=== PATIENT | male | born 1955 | race Caucasian/White ===

== ENCOUNTER 2017-11-08 14:00 | Observation (INO) ==
--- NOTE | 2017-11-08 14:18 | Emergency Department Note ---
Disposition Clinical Impression: Confusion, Acute electrocardiogram changes Disposition: Admitted As Inpatient Condition: Fair Referrals: Chivo Mcfarlane MD [Primary Care Provider] - Forms: ED Satisfaction Letter Time of Disposition: 16:00 Altered Mental Status HPI - General Chief Complaint: ED Altered Mental Status Stated Complaint: increased confusion Time Seen by Provider: 11/08/17 14:05 Source: patient, EMS Mode of arrival: EMS Limitations: no limitations Nursing Notes Reviewed: Yes Vital Signs Reviewed: Yes - History of Present Illness HPI Narrative: 62-year-old with a history of dementia who comes in with increasing confusion. Patient fell yesterday hit his face and had had a CT of the head and face yesterday negative for acute findings. Today he was found to be more confused according to the squad. However on arrival here he is able to tell us where he is at he does not know the date is able to relate what happened to him yesterday and that he was seen. Sent for evaluation for increasing confusion. 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: caregiver Pain Severity: none Context: other (Fall yesterday) Associated symptoms: Reports: denies other symptoms - Related Data Home Medications Medication Instructions Recorded Confirmed Aspirin [Adult Aspirin Regimen] 81 mg PO DAILY 11/08/17 11/08/17 Benztropine [Cogentin] 1 mg PO BID 11/08/17 11/08/17 Cholecalciferol (D-3) [Vitamin D] 5,000 unit PO DAILY 11/08/17 11/08/17 Docusate Sodium [Dok] 100 mg PO DAILY 11/08/17 11/08/17 Haloperidol [Haldol] 5 mg PO HS 11/08/17 11/08/17 Haloperidol [Haloperidol] 10 mg PO BID 11/08/17 11/08/17 HydrOXYzine 10 mg PO Q6H PRN 11/08/17 11/08/17 Loratadine [Claritin] 10 mg PO DAILY 11/08/17 11/08/17 Meloxicam [Meloxicam] 15 mg PO DAILY 11/08/17 11/08/17 Metoprolol [Lopressor] 25 mg PO BID 11/08/17 11/08/17 Multivitamin/Iron/Folic Acid 1 tab PO DAILY 11/08/17 11/08/17 [Certavite-Antioxidant Tablet] Ranitidine HCl [Acid Calender Runner] 150 mg PO BID 11/08/17 11/08/17 Simvastatin [Zocor] 40 mg PO HS 11/08/17 11/08/17 risperiDONE [Risperidone] 4 mg PO BID 11/08/17 11/08/17 traZODone [TraZODone] 50 mg PO HS PRN 11/08/17 11/08/17 Allergies Allergy/AdvReac Type Severity Reaction Status Date / Time Penicillins Allergy Severe unknown Verified 11/08/17 16:23 perphenazine Allergy See Verified 11/08/17 16:23 Comments Phenothiazines Allergy See Verified 11/08/17 16:23 Comments Thioxanthenes Allergy See Verified 11/08/17 16:23 Comments venom-honey bee Allergy See Verified 11/08/17 16:23 [bee venom (honey bee)] Comments Novaine Allergy Intermediate unknown Uncoded 11/08/17 16:23 Trillivon Allergy Intermediate unknown Uncoded 11/08/17 16:23 All systems ED: reviewed and negative except as stated. Constitutional: Denies: fever, chills, weakness, weight change Eyes: Denies: eye pain, eye discharge, vision change ENT ED: Denies: ear pain, throat pain, dental pain, hearing loss, epistaxis, congestion, dysphagia Cardiovascular: Denies: chest pain, palpitations, dyspnea on exertion, edema, syncope Respiratory: Denies: cough, dyspnea, wheezes, hemoptysis, stridor Gastrointestinal: Denies: abdominal pain, nausea, vomiting, diarrhea, constipation, hematemesis, melena, hematochezia Genitourinary: Denies: urgency, dysuria, frequency, hematuria Musculoskeletal: Denies: back pain, neck pain, arthralgia, myalgia Integumentary: Denies: rash, abrasion, lesions Neurological: Denies: headache, weakness, numbness, paresthesias, confusion, abnormal gait, vertigo Psychiatric: Denies: anxiety, depression, suicidal thoughts, homicidal thoughts , auditory hallucinations, visual hallucinations Endocrine: Denies: fatigue Hematological/Lymphatic: Denies: easy bleeding, easy bruising Allergic/Immunologic: Denies: facial swelling, urticaria Past Medical History - Past Medical History Medical history: Reports: dementia, diabetes Surgical history: Reports: non-contributory Psychiatric history: Reports: no psych history - Social History Smoking Status: Current every day smoker Smokeless Tobacco Status: No Alcohol use: Reports: none Drug use: Reports: none Physical Exam - General Limitations: no limitations General appearance: alert, in no apparent distress - Head Head exam: atraumatic, normocephalic, normal inspection - Eye Eye exam: Present: normal appearance, PERRL, EOMI - ENT ENT exam: normal exam, normal oropharynx, mucous membranes moist - Neck Neck exam: Present: normal inspection, full ROM, trachea midline - Chest Chest inspection: Present: normal inspection, symmetric chest wall rise - Respiratory Respiratory exam: Present: normal lung sounds bilaterally - Cardiovascular Cardiovascular exam: Present: regular rate, normal rhythm, normal heart sounds - Abdominal Exam Abdominal exam: Present: soft, Non-Tender. Absent: tenderness, distention, guarding, rebound, rigidity - Extremities Exam Extremities exam: Present: normal inspection, full ROM. Absent: tenderness, pedal edema - Expanded Lower Extremity Exam Neurovascular/Tendon exam: Absent: motor deficit, sensory deficit, tendon deficit Gait: observed and normal - Back Exam Back exam: Present: normal inspection, full ROM. Absent: tenderness - Neurological Exam Neurological exam: Present: alert, oriented X3 - Psychiatric Psychiatric exam: Present: normal affect, normal mood - Skin Skin exam: Present: warm, dry, intact, normal color Course - Reevaluation(s) Reevaluation #1: Patient with increased confusion. EKG was obtained that showed T-wave inversion which was new. Previous left bundle branch block had resolved. Cardiology consult obtained recommend heparin and admission. Time: 17:12 - Consultations Consultation #1: I discussed the case with , she reviewed the EKGs and recommended heparin. The patient has had multiple falls. CT today was negative for acute intracranial injury. The heparin would be just short term until further evaluation and be done. Time: 15:59 Consultation #2: Discussed with , admit. Time: 17:12 Vital Signs Temperature 98 F 11/08/17 14:03 Pulse Rate 78 11/08/17 14:03 Respiratory Rate 18 11/08/17 14:03 Blood Pressure 126/77 11/08/17 14:03 O2 Sat by Pulse Oximetry 98 11/08/17 14:03 Temperature 98 F 11/08/17 14:03 Pulse Rate 78 11/08/17 14:03 Respiratory Rate 18 11/08/17 14:03 Blood Pressure 126/77 11/08/17 14:03 O2 Sat by Pulse Oximetry 98 11/08/17 14:03 Oxygen Delivery Oxygen Delivery Room Air Altered Mental Status - Lab Data Result diagrams: 11/08/17 14:12 11/08/17 14:12 Lab Results 11/08/17 11/08/17 11/08/17 Range/Units 14:12 14:12 14:12 WBC 6.2 (4.3-11.1) K/mcL RBC 3.10 L (4.19-5.50) M/mcL Hgb 11.1 L (12.9-16.9) g/dL Hct 32.9 L (37.5-50.1) % MCV 106.1 H (83.0-100.0) fL MCH 35.8 H (28.0-33.3) pg MCHC 33.7 (31.6-35.5) g/dL RDW 14.3 (11.5-14.5) % Plt Count 197 (140-400) K/mcL MPV 8.8 L (9.4-12.4) fL Immature Gran % 0.2 (0-4) % Seg Neutrophils % 64.1 % Lymphocytes % 23.3 % Monocytes % 8.7 % Eosinophils % 3.2 % Basophils % 0.5 % Neutrophils # 4.0 (1.6-8.9) K/mcL Lymphocytes # 1.4 (0.6-4.6) K/mcL Monocytes # 0.5 (0.0-1.3) K/mcL Eosinophils # 0.2 (0.0-0.6) K/mcL Basophils # 0.0 (0.0-0.2) K/mcL PT 10.5 (9.4-12.1) Seconds INR 1.0 APTT 26.3 (26.0-36.0) Seconds Sodium 138 (136-145) mEq/L Potassium 3.6 (3.5-5.1) mEq/L Chloride 103 (98-107) mEq/L Carbon Dioxide 26 (23-29) mEq/L BUN 9 (8-23) mg/dL Creatinine 0.68 L (0.70-1.30) mg/dL Est GFR ( Amer) > 60 (> 60) Est GFR (Non-Af Amer) > 60 (> 60) BUN/Creatinine Ratio 13 (6-26) Glucose 105 (70-105) mg/dL Calculated Osmolality 285 (280-300) Calcium 9.5 (8.6-10.3) mg/dL Total Bilirubin 0.5 (0.3-1.0) mg/dL Direct Bilirubin 0.2 (0.0-0.2) mg/dL Indirect Bilirubin 0.3 (0.0-1.2) mg/dL AST 19 (13-39) Units/L ALT 14 (7-52) Units/L Alkaline Phosphatase 110 H (34-104) Units/L Ammonia (16-53) mcmol/L Troponin I < 0.03 (< 0.04) ng/mL Serum Total Protein 6.8 (6.4-8.9) g/dL Albumin 4.2 (3.5-5.7) g/dL Globulin 2.6 (2.4-3.5) g/dL Albumin/Globulin Ratio 1.6 (1.1-2.2) Urine Color (Yellow) Urine Clarity (Clear) Urine pH (5.0-8.0) pH Units Ur Specific [place] (1.010-1.025) Urine Protein (Neg-Trace) mg/dL Urine Glucose (UA) (Normal) mg/dL Urine Ketones (Negative) mg/dL Urine Blood (Negative) Urine Nitrite (Negative) Urine Bilirubin (Negative) Urine Urobilinogen (Normal) mg/dL Ur Leukocyte Esterase (Negative) Ur Culture Indicated? (NO) Urine Opiates Screen (Gglpzp=100) ng/mL Ur Barbiturates Screen (Ybsvtb=844) ng/mL Ur Phencyclidine Scrn (Cutoff=25) ng/mL Ur Amphetamines Screen (Sfosup=5431) ng/mL U Benzodiazepines Scrn (Xxaxjq=804) ng/mL Urine Cocaine Screen (Cutoff= 300) ng/mL U Marijuana (THC) Screen (Cutoff = 50) ng/mL Ethyl Alcohol < 10 (Less than 10) mg/dL 11/08/17 11/08/17 11/08/17 Range/Units 14:53 14:55 14:55 WBC (4.3-11.1) K/mcL RBC (4.19-5.50) M/mcL Hgb (12.9-16.9) g/dL Hct (37.5-50.1) % MCV (83.0-100.0) fL MCH (28.0-33.3) pg MCHC (31.6-35.5) g/dL RDW (11.5-14.5) % Plt Count (140-400) K/mcL MPV (9.4-12.4) fL Immature Gran % (0-4) % Seg Neutrophils % % Lymphocytes % % Monocytes % % Eosinophils % % Basophils % % Neutrophils # (1.6-8.9) K/mcL Lymphocytes # (0.6-4.6) K/mcL Monocytes # (0.0-1.3) K/mcL Eosinophils # (0.0-0.6) K/mcL Basophils # (0.0-0.2) K/mcL PT (9.4-12.1) Seconds INR APTT (26.0-36.0) Seconds Sodium (136-145) mEq/L Potassium (3.5-5.1) mEq/L Chloride (98-107) mEq/L Carbon Dioxide (23-29) mEq/L BUN (8-23) mg/dL Creatinine (0.70-1.30) mg/dL Est GFR ( Amer) (> 60) Est GFR (Non-Af Amer) (> 60) BUN/Creatinine Ratio (6-26) Glucose (70-105) mg/dL Calculated Osmolality (280-300) Calcium (8.6-10.3) mg/dL Total Bilirubin (0.3-1.0) mg/dL Direct Bilirubin (0.0-0.2) mg/dL Indirect Bilirubin (0.0-1.2) mg/dL AST (13-39) Units/L ALT (7-52) Units/L Alkaline Phosphatase (34-104) Units/L Ammonia 25 (16-53) mcmol/L Troponin I (< 0.04) ng/mL Serum Total Protein (6.4-8.9) g/dL Albumin (3.5-5.7) g/dL Globulin (2.4-3.5) g/dL Albumin/Globulin Ratio (1.1-2.2) Urine Color Yellow (Yellow) Urine Clarity Clear (Clear) Urine pH 7.0 (5.0-8.0) pH Units Ur Specific [place] 1.012 (1.010-1.025) Urine Protein Negative (Neg-Trace) mg/dL Urine Glucose (UA) Normal (Normal) mg/dL Urine Ketones Negative (Negative) mg/dL Urine Blood Negative (Negative) Urine Nitrite Negative (Negative) Urine Bilirubin Negative (Negative) Urine Urobilinogen Normal (Normal) mg/dL Ur Leukocyte Esterase Negative (Negative) Ur Culture Indicated? NO (NO) Urine Opiates Screen Negative (Felrya=872) ng/mL Ur Barbiturates Screen Negative (Kxcpvf=173) ng/mL Ur Phencyclidine Scrn Negative (Cutoff=25) ng/mL Ur Amphetamines Screen Negative (Lxfale=9117) ng/mL U Benzodiazepines Scrn Negative (Oiidcd=108) ng/mL Urine Cocaine Screen Negative (Cutoff= 300) ng/mL U Marijuana (THC) Screen Negative (Cutoff = 50) ng/mL Ethyl Alcohol (Less than 10) mg/dL - EKG Data EKG attestation: Yes I reviewed and interpreted this EKG. EKG shows normal: sinus rhythm Rate: normal Rhythm: NSR T wave inversions: v1, v2, v3, v4 Interpretation: other (New T-wave inversion in leads V1 and V2 V3 and V4. Also appears that the left bundle branch block that was present on the EKG 08/30/2017 has resolved.) TPA Checklist - LKW: 3-4.5 hrs Add. Warnings/Precautions Patient/family understanding: The patient/family members have been counseled and understood the risk, benefit , and alternatives of treatment.
[2017-11-08 15:06] LABS: Bilirubin,Urine Negative (Negative); Blood,Urine Negative (Negative); Clarity,Urine Clear (Clear); Color,Urine Yellow (Yellow); Glucose,Urine (UA) Normal (Normal); Ketones,Urine Negative (Negative); Leukocyte Esterase,Urine Negative (Negative); Nitrite,Urine Negative (Negative); Protein,Urine Negative (Neg-Trace); Specific Gravity,Urine 1.012 (1.010-1.025); Urobilinogen,Urine Normal (Normal)
[2017-11-08 15:13] LABS: Amphetamine Screen,Urine Negative ng/mL (Cutoff=1000); Barbiturate Screen,Urine Negative ng/mL (Cutoff=200); Benzodiazepines Screen,Urine Negative ng/mL (Cutoff=200); Cannabinoid Screen,Urine Negative ng/mL (Cutoff = 50); Cocaine Screen,Urine Negative ng/mL (Cutoff= 300); Opiate Screen,Urine Negative ng/mL (Cutoff=300); Phencyclidine Screen,Urine Negative ng/mL (Cutoff=25)
[2017-11-08 15:17] LABS: Basophils % 0.5 %; Eosinophils # 0.2 K/mcL (0.0-0.6); Eosinophils % 3.2 %; Hematocrit 32.9 % (37.5-50.1); Hemoglobin 11.1 g/dL (12.9-16.9); Immature Granulocytes % 0.2 % (0-4); Lymphocytes # 1.4 K/mcL (0.6-4.6); Lymphocytes % 23.3 %; Mean Corpuscular HGB Conc 33.7 g/dL (31.6-35.5); Mean Corpuscular Hemoglobin 35.8 pg (28.0-33.3); Mean Corpuscular Volume 106.1 fL (83.0-100.0); Mean Platelet Volume 8.8 fL (9.4-12.4); Monocytes # 0.5 K/mcL (0.0-1.3); Monocytes % 8.7 %; Platelet Count 197 K/mcL (140-400); Red Cell Distribution Width 14.3 % (11.5-14.5); Segmented Neutrophils % 64.1 %
[2017-11-08 15:24] LABS: Prothrombin Time 10.5 Seconds (9.4-12.1)
[2017-11-08 15:27] LABS: Activated Partial Thrombo Time 26.3 Seconds (26.0-36.0)
[2017-11-08 15:40] LABS: Troponin I < 0.03 ng/mL (< 0.04)
[2017-11-08 15:41] LABS: Alanine Aminotransferase 14 Units/L (7-52); Albumin 4.2 g/dL (3.5-5.7); Albumin/Globulin Ratio 1.6 (1.1-2.2); Alkaline Phosphatase 110 Units/L (34-104); Aspartate Amino Transferase 19 Units/L (13-39); BUN/Creatinine Ratio 13 (6-26); Bilirubin,Direct 0.2 mg/dL (0.0-0.2); Bilirubin,Indirect 0.3 mg/dL (0.0-1.2); Bilirubin,Total 0.5 mg/dL (0.3-1.0); Blood Urea Nitrogen 9 mg/dL (8-23); Calcium 9.5 mg/dL (8.6-10.3); Carbon Dioxide 26 mEq/L (23-29); Chloride 103 mEq/L (98-107); Ethanol < 10 mg/dL (Less than 10); Globulin 2.6 g/dL (2.4-3.5); Glucose 105 mg/dL (70-105); Osmolality,Calculated 285 (280-300); Potassium 3.6 mEq/L (3.5-5.1); Sodium 138 mEq/L (136-145); Total Protein 6.8 g/dL (6.4-8.9); eGFR For African Americans > 60 (> 60); eGFR For Non-African Americans > 60 (> 60)
[2017-11-08] MEDS ORDERED: *HR* Heparin 5,000 UNIT/ML VIAL IVP PRN ×2 (15:58)
[2017-11-08] MEDS ORDERED: *HR* Heparin 5,000 UNIT/ML VIAL IVP ONE (15:58)
[2017-11-08] MEDS ORDERED: Heparin 25,000 UNIT/500 ML D5W 25,000 UNIT/500 ML BAG IVC SCH (16:00)
[2017-11-08] MEDS ORDERED: Naloxone 0.4 MG/ML INJ IVP PRN (18:01)
--- NOTE | 2017-11-08 18:18 | Internal Med History&Physical ---
Date of Encounter: 11/08/17 Time of Encounter: 18:06 Internal Medicine - H&P: HPI Chief complaint: chest discomfort Admitted From: Emergency Dept Plans for Post Hospital Care: Home History of present illness: Mr. Wagner is a 62 year old male, who has background medical history of advanced dementia, coronary artery disease, hypertension Patient is a resident of a [facility]. Patient had a fall yesterday and noted that patient was little confused as compared to his baseline. The director of group counseling program was concern and that is the reason patient was sent to this emergency room via EMS. Patient denies chest pain, nausea, vomiting, abdominal pain, dizziness or diarrhea. Workup in the emergency room: Patient was evaluated in the emergency room. Basic labs were drawn. EKG was done. Noted that EKG had a dynamic changes. Emergency room physician discussed case with the cardiology. Cardiology recommended to start IV heparin. Reason for admission: Acute EKG abnormality leads to intravenous heparin administration. Patient needs close monitoring and observation. Past Med Surg Social Fam HX - Past Medical History Medical history: dementia, diabetes Psychiatric history: no psych history - Past Surgical History Surgical History: non-contributory - Social History Smoking Status: Current every day smoker Smokeless Tobacco Status: No Alcohol use: none Drug use: none Internal Medicine - H&P: Meds Aspirin [Adult Aspirin Regimen] 81 mg PO DAILY 11/08/17 [History] Benztropine [Cogentin] 1 mg PO BID 11/08/17 [History] Cholecalciferol (D-3) [Vitamin D] 5,000 unit PO DAILY 11/08/17 [History] Docusate Sodium [Dok] 100 mg PO DAILY 11/08/17 [History] Haloperidol [Haldol] 5 mg PO HS 11/08/17 [History] Haloperidol [Haloperidol] 10 mg PO BID 11/08/17 [History] HydrOXYzine 10 mg PO Q6H PRN 11/08/17 [History] Loratadine [Claritin] 10 mg PO DAILY 11/08/17 [History] Meloxicam [Meloxicam] 15 mg PO DAILY 11/08/17 [History] Metoprolol [Lopressor] 25 mg PO BID 11/08/17 [History] Multivitamin/Iron/Folic Acid [Certavite-Antioxidant Tablet] 1 tab PO DAILY 11/08 [History] Ranitidine HCl [Acid Deboning Team Leader] 150 mg PO BID 11/08/17 [History] Simvastatin [Zocor] 40 mg PO HS 11/08/17 [History] risperiDONE [Risperidone] 4 mg PO BID 11/08/17 [History] traZODone [TraZODone] 50 mg PO HS PRN 11/08/17 [History] 3 Allergy/AdvReac Type Severity Reaction Status Date / Time Penicillins Allergy Severe unknown Verified 11/08/17 16:23 perphenazine Allergy See Verified 11/08/17 16:23 Comments Phenothiazines Allergy See Verified 11/08/17 16:23 Comments Thioxanthenes Allergy See Verified 11/08/17 16:23 Comments venom-honey bee Allergy See Verified 11/08/17 16:23 [bee venom (honey bee)] Comments Novaine Allergy Intermediate unknown Uncoded 11/08/17 16:23 Trillivon Allergy Intermediate unknown Uncoded 11/08/17 16:23 All Systems PM: A 10-system review of systems was performed and is negative for pertinent findings except as documented above in the HPI. - Constitutional Constitutional: no chills, no fever(s), no night sweats - EENT Eyes: no change in vision, no discharge, no pain, no photophobia Ears: no ear discharge, no ear pain, no tinnitus Nose, mouth and throat: no dysphagia, no nasal discharge, no neck pain, no sore throat - Cardiovascular Cardiovascular ROS IM: chest pain, no diaphoresis, no dyspnea, no lightheadedness, no palpitations, no syncope - Respiratory Respiratory: no cough, no dyspnea, no wheezing, no excessive phlegm production - Gastrointestinal Gastrointestinal: no abdominal pain, no diarrhea, no hematemesis, no hematochezia, no melena, no nausea, no vomiting - Musculoskeletal Musculoskeletal ROS IM: no numbness, no tingling - Integumentary Integumentary IM: no rash, no unusual bruising - Neurological Neurological ROS: no confusion, no convulsions, no focal weakness, no numbness, no tingling, no tremor(s) - Hematologic/Lymphatic Hematologic/Lymphatic: no easy bruising - Constitutional Vitals: Temp Pulse Resp BP Pulse Ox 98 F 74 18 128/78 99 11/08/17 14:03 11/08/17 18:00 11/08/17 18:00 11/08/17 18:00 11/08/17 18:00 General appearance: Present: A&O X 2, pleasant, no acute distress, answers questions appropriately - Head Head exam: Present: atraumatic, normocephalic - Eye Eye exam: Present: PERRL, conjuntiva pink, sclera anicteric Pupils: Present: PERRL - Neck Neck exam general surgery: Present: supple, trachea midline. Absent: lymphadenopathy - Respiratory Respiratory exam: Present: CTAB. Absent: accessory muscle use, rales, rhonchi, wheezes - Cardiovascular Cardiovascular exam: Present: RRR, +S1, +S2. Absent: diastolic murmur, gallop, rubs, systolic murmur - GI/Abdominal GI/Abdominal exam: Present: normal bowel sounds, soft, no peritoneal signs. Absent: distended, tenderness - Extremities Exam Extremities exam: Present: warm, radial pulses palpable and symmetrical. Absent : calf tenderness, cyanotic, pedal edema - Neurological Exam Neurological exam: Present: CN II-XII intact, oriented X3, no focal deficits. Absent: pronater drift, facial droop, speech deficit - Skin Skin exam: Present: dry, intact Internal Med - H&P Results - Labs CBC & Chem 7: 11/08/17 14:12 11/08/17 14:12 - Assessment and plan (1) Acute electrocardiogram changes Current Visit: Yes Status: Acute Assessment and plan: 62/male History of dementia. Admitted with mild confusion. Had a fall at [facility]. [facility] head: Negative for any acute changes. EKG in the emergency room: Dynamic changes and as compared to old EKG he has a acute T-wave inversion in anterior leads. ER physician call cardiology. Cardiology recommended observation/rule out ND protocol. Plan: Cardiac consultation Admit as an observation. Cardiac diet. Cycle troponin. Heparin drip. ASA/statin/beta sagar I examined this patient in the emergency room #24. Plan of care extended the patient. All questions answered. (2) Confusion Current Visit: Yes Status: Acute Assessment and plan: Patient is mildly confused. He answers all the questions. maybe this is a part of his underlying dementia (3) Fall Current Visit: No Status: Acute Assessment and plan: Patient had a multiple falls in the past. Patient had a fall yesterday. CT head: Negative for any acute intracranial bleed. Patient is presently on IV heparin. Fall precautions: order placed. Upon discharge there has to have some kind of decision regarding anticoagulation as this patient has a extremely high fall risk. Qualifiers: Encounter type: initial encounter Qualified Code(s): W19.XXXA - Unspecified fall, initial encounter (4) Syncope Current Visit: No Status: Acute Assessment and plan: Patient had a syncopal episode. It was a witnessed episode in the [facility]. We will observe him very closely. Fall precautions. Qualifiers: Syncope type: unspecified Qualified Code(s): R55 - Syncope and collapse (5) DVT prophylaxis Current Visit: Yes Status: Acute Assessment and plan: Heparin drip Medical decision making: This patient has a moderate to severe risk of worsening in spite of being on appropriate medication due to the underlying complex comorbid conditions. - Time Spent With Patient Total time spent is greater than 50% in coordination of care (as documented) at patient's floor/unit and/or counseling patient:
[2017-11-08] MEDS: Famotidine 20 MG TABLET PO SCH (20:39)
[2017-11-08] MEDS: risperiDONE 1 MG TABLET PO SCH (20:39)
[2017-11-08] MEDS ORDERED: Ondansetron 4 MG/2 ML VIAL IVP PRN (20:57)
[2017-11-08] MEDS ORDERED: Ondansetron 4 MG/2 ML VIAL ONE (20:59)
[2017-11-09 01:27] LABS: Basophils % 0.6 %; Eosinophils # 0.3 K/mcL (0.0-0.6); Eosinophils % 4.8 %; Hematocrit 30.6 % (37.5-50.1); Hemoglobin 10.4 g/dL (12.9-16.9); Immature Granulocytes % 0.3 % (0-4); Lymphocytes % 28.9 %; Mean Corpuscular Hemoglobin 36.1 pg (28.0-33.3); Mean Corpuscular Volume 106.3 fL (83.0-100.0); Mean Platelet Volume 9.5 fL (9.4-12.4); Monocytes # 0.7 K/mcL (0.0-1.3); Monocytes % 9.5 %; Neutrophils # 3.8 K/mcL (1.6-8.9); Platelet Count 191 K/mcL (140-400); Red Blood Count 2.88 M/mcL (4.19-5.50); Red Cell Distribution Width 14.2 % (11.5-14.5); Segmented Neutrophils % 55.9 %
[2017-11-09 01:40] LABS: Activated Partial Thrombo Time 64.7 Seconds (26.0-36.0)
[2017-11-09 01:54] LABS: Alanine Aminotransferase 11 Units/L (7-52); Albumin 3.8 g/dL (3.5-5.7); Albumin/Globulin Ratio 1.8 (1.1-2.2); Alkaline Phosphatase 97 Units/L (34-104); Aspartate Amino Transferase 18 Units/L (13-39); BUN/Creatinine Ratio 14 (6-26); Bilirubin,Total 0.4 mg/dL (0.3-1.0); Blood Urea Nitrogen 10 mg/dL (8-23); Calcium 9.2 mg/dL (8.6-10.3); Carbon Dioxide 27 mEq/L (23-29); Chloride 105 mEq/L (98-107); Chol/HDL Ratio 2.7 (0-4.9); Cholesterol 150 mg/dL (< 200); Globulin 2.1 g/dL (2.4-3.5); Glucose 120 mg/dL (70-105); HDL Cholesterol 56 mg/dL (40-59); LDL Cholesterol,Calculated 82 mg/dL (0-99); Magnesium 2.1 mg/dL (1.6-2.6); Osmolality,Calculated 284 (280-300); Phosphorous 3.9 mg/dL (2.7-4.5); Potassium 4.1 mEq/L (3.5-5.1); Sodium 137 mEq/L (136-145); Total Protein 5.9 g/dL (6.4-8.9); Triglycerides 62 mg/dL (< 150); eGFR For African Americans > 60 (> 60); eGFR For Non-African Americans > 60 (> 60)
[2017-11-09] MEDS: Loratadine 10 MG TABLET PO SCH (07:45)
[2017-11-09] MEDS: Famotidine 20 MG TABLET PO SCH ×2 (07:45→20:24)
[2017-11-09] MEDS: Aspirin Enteric Coated 81 MG Tablet PO SCH (07:45)
[2017-11-09] MEDS: Multivit/Ca/Min/Fe/FA 1 TAB TABLET PO SCH (07:45)
[2017-11-09] MEDS: risperiDONE 1 MG TABLET PO SCH ×2 (07:45→20:24)
[2017-11-09] MEDS: Cholecalciferol (D-3) 1,000 UNIT TABLET PO SCH (07:45)
--- NOTE | 2017-11-09 09:24 | Electrocardiograph Report ---
[place] [id number] Test Date: 2017-11-08 Pat Name: Russ Wagner Department: 104 Room: 3B21 Gender: M Clinical Reimbursement Specialist: AKIRA : [id number] Requested By: Milton Rodgers Order Number: [id number] Reading MD: Britt Suarez Measurements Intervals [place] Rate: 73 P: 58 DE: 184 QRS: -59 QRSD: 118 T: 14 QT: 424 QTc: 449 Interpretive Statements SINUS RHYTHM LEFT ANTERIOR FASCICULAR BLOCK [QRS AXIS <= -45, QR IN I, RS IN II] ST DEVIATION AND MARKED T-WAVE ABNORMALITY, CONSIDER ANTERIOR ISCHEMIA [-0.5+ mV T WAVE IN V3/V4] IVCD Electronically Signed On 11-09-2017 9:22:50 EDT by Britt Suarez
--- NOTE | 2017-11-09 10:58 | Cardiology Consult Note ---
<Corby Paige R - Last Filed: 11/09/17 11:17> Date of Encounter: 11/09/17 Time of Encounter: 10:53 Assessment and Plan (1) Acute electrocardiogram changes Current Visit: Yes Status: Acute EKG on presentation with ST depression in anterior leads--concerning for anterior ischemia and these changes are new compared to EKG 08/2017. EKG 08/2017 LBBB, not noted on current EKG, intermittent. Pt denies chest pain or dyspnea. Denies hx of CAD. No hx of CAD noted in eCW encounters. Alert and oriented x 2. Not oriented to time. On heparin gtt. Troponins negative x 4. Will stop heparin gtt. Risk factors for CAD include HTN, HLD, tobacco abuse. Given that he is asymptomatic, his dementia and schizophrenia, anticipate medical management. Check TTE to evaluate structure and function. ASA, Statin, BB. Lipid panel normal. Further recommendations pending TTE results. (2) Syncope Current Visit: Yes Status: Acute H&P reports syncopal event, pt unable to confirm this. Head CT negative. TTE to evaluate structure and function. Qualifiers: Syncope type: unspecified Qualified Code(s): R55 - Syncope and collapse Discussion w patient/family: The assessment and plan as outlined above was discussed with the patient and/or family members who expressed understanding and agreement. All questions were answered. Thank you for involving us in the care of your patient. Please call with any questions. I will discuss all the above with Dr. Suarez and make changes as necessary. History of Present Illness Consult date: 11/09/17 Requesting physician: Connor Bhagat Consult reason: EKG changes Chief complaint: fall History of present illness: Mr. Wagner is a 62 year old male with PMH HTN, HLD, paranoid schizophrenia, dementia, lives in a residential. He reportedly had a fall was was more confused compared to his baseline. There is also mention of syncope, but pt is unable to confirm this. He is alert and oriented to person and place, not time. EKG changes noted on presentation and cardiology consulted for further recommendations. Troponin negative x 4. He denies hx of CAD and none is noted in eCW hx. Denies chest pain or dyspnea. No prior cardiac testing available to view. Past Med Surg Social Fam HX - Past Medical History Medical history: dementia, diabetes, hypertension Psychiatric history: no psych history - Past Surgical History Surgical History: non-contributory - Social History Smoking Status: Current every day smoker Smokeless Tobacco Status: No Alcohol use: none Drug use: none - Family History Mother Living Status: Father Living Status: Medications and Allergies Aspirin [Adult Aspirin Regimen] 81 mg PO DAILY 11/08/17 [History] Benztropine [Cogentin] 1 mg PO BID 11/08/17 [History] Cholecalciferol (D-3) [Vitamin D] 5,000 unit PO DAILY 11/08/17 [History] Docusate Sodium [Dok] 100 mg PO DAILY 11/08/17 [History] Haloperidol [Haldol] 5 mg PO HS 11/08/17 [History] Haloperidol [Haloperidol] 10 mg PO BID 11/08/17 [History] HydrOXYzine 10 mg PO Q6H PRN 11/08/17 [History] Loratadine [Claritin] 10 mg PO DAILY 11/08/17 [History] Meloxicam [Meloxicam] 15 mg PO DAILY 11/08/17 [History] Metoprolol [Lopressor] 25 mg PO BID 11/08/17 [History] Multivitamin/Iron/Folic Acid [Certavite-Antioxidant Tablet] 1 tab PO DAILY 11/08 [History] Ranitidine HCl [Acid [employer]] 150 mg PO BID 11/08/17 [History] Simvastatin [Zocor] 40 mg PO HS 11/08/17 [History] risperiDONE [Risperidone] 4 mg PO BID 11/08/17 [History] traZODone [TraZODone] 50 mg PO HS PRN 11/08/17 [History] 3 Allergy/AdvReac Type Severity Reaction Status Date / Time Penicillins Allergy Severe unknown Verified 11/08/17 16:23 perphenazine Allergy See Verified 11/08/17 16:23 Comments Phenothiazines Allergy See Verified 11/08/17 16:23 Comments Thioxanthenes Allergy See Verified 11/08/17 16:23 Comments venom-honey bee Allergy See Verified 11/08/17 16:23 [bee venom (honey bee)] Comments Novaine Allergy Intermediate unknown Uncoded 11/08/17 16:23 Trillivon Allergy Intermediate unknown Uncoded 11/08/17 16:23 ROS unobtainable: due to mental status All Systems Review: The remainder of the systems were reviewed and are negative Physical Examination Vital Signs, Last 4 Hours Temp Pulse Resp BP Pulse Ox 11/09/17 07:29 97.4 F L 63 19 134/74 99 Vital Signs Temp Pulse Resp BP Pulse Ox 11/09/17 07:29 97.4 F L 63 19 134/74 99 11/09/17 02:40 98.7 F 64 16 111/70 97 11/08/17 23:15 98.4 F 66 16 113/66 96 11/08/17 20:11 98.3 F 87 16 131/77 94 11/08/17 18:00 74 18 128/78 99 11/08/17 14:03 98 F 78 18 126/77 98 Intake and Output 11/08/17 11/09/17 11/09/17 23:59 07:59 15:59 Intake Total 238 / 238 Balance 238 / 238 Intake: IV Fluids 238 / 238 Heparin 25,000 UNIT/500 ML D5W 238 / 238 25,000 unit In 500 ml @ 12 UNIT /KG/HR 17.418 mls/hr IVC .Q24H SENG Rx#:[id number] Other: # Voids 1 Weight 81.7 kg Blood Glucose* 109 General: Conversant, No Apparent Distress HEENT: Atraumatic, Normocephaly, Mucus Membranes Moist Neck: No JVD, Normal carotid pulses Cardiac: Reg Rate and Rhythm, Normal S1 and S2, No Murmur Lungs: Normal Breath Sounds, No Wheeze, Rales, Rhonchi Neuro: Alert and responsive, No focal deficits noted Abdomen: Soft, Non-Tender Skin: No rashes noted on visualized skin Musculoskeletal: No Chest Wall Tenderness Extremities: No Clubbing, No Cyanosis, No Edema, Normal Pulses Results 11/09/17 00:40 11/09/17 00:40 Lab Results 11/08/17 11/08/17 11/09/17 20:07 23:16 00:40 WBC Hgb Hct Plt Count INR APTT 69.7 H D Sodium Potassium Chloride Carbon Dioxide BUN Creatinine Glucose Calcium Magnesium Total Bilirubin AST ALT Alkaline Phosphatase Troponin I < 0.03 < 0.03 B-Natriuretic Peptide 11/09/17 11/09/17 11/09/17 00:40 00:40 00:40 WBC 6.8 Hgb 10.4 L Hct 30.6 L Plt Count 191 INR 1.0 APTT 64.7 H Sodium 137 Potassium 4.1 Chloride 105 Carbon Dioxide 27 BUN 10 Creatinine 0.72 Glucose 120 H Calcium 9.2 Magnesium 2.1 Total Bilirubin 0.4 AST 18 ALT 11 Alkaline Phosphatase 97 Troponin I B-Natriuretic Peptide 11/09/17 11/09/17 11/09/17 00:40 06:16 06:16 WBC Hgb Hct Plt Count INR APTT 74.8 H Sodium Potassium Chloride Carbon Dioxide BUN Creatinine Glucose Calcium Magnesium Total Bilirubin AST ALT Alkaline Phosphatase Troponin I < 0.03 B-Natriuretic Peptide 25 Short CBC 11/09/17 11/08/17 Range/Units 00:40 14:12 WBC 6.8 6.2 (4.3-11.1) K/mcL Hgb 10.4 L 11.1 L (12.9-16.9) g/dL Hct 30.6 L 32.9 L (37.5-50.1) % Plt Count 191 197 (140-400) K/mcL Neutrophils # 3.8 4.0 (1.6-8.9) K/mcL BMP 11/09/17 11/08/17 Range/Units 00:40 14:12 Sodium 137 138 (136-145) mEq/L Potassium 4.1 3.6 (3.5-5.1) mEq/L Chloride 105 103 (98-107) mEq/L Carbon Dioxide 27 26 (23-29) mEq/L BUN 10 9 (8-23) mg/dL Creatinine 0.72 0.68 L (0.70-1.30) mg/dL Glucose 120 H 105 (70-105) mg/dL Calcium 9.2 9.5 (8.6-10.3) mg/dL Cardiac Enzymes 11/09/17 11/09/17 11/08/17 Range/Units 06:16 00:40 20:07 Troponin I < 0.03 < 0.03 < 0.03 (< 0.04) ng/mL 11/08/17 Range/Units 14:12 Troponin I < 0.03 (< 0.04) ng/mL Liver Function 11/09/17 11/08/17 Range/Units 00:40 14:12 Total Bilirubin 0.4 0.5 (0.3-1.0) mg/dL Direct Bilirubin 0.2 (0.0-0.2) mg/dL AST 18 19 (13-39) Units/L ALT 11 14 (7-52) Units/L Alkaline Phosphatase 97 110 H (34-104) Units/L Albumin 3.8 4.2 (3.5-5.7) g/dL Urine 11/08/17 Range/Units 14:55 Urine Color Yellow (Yellow) Urine Clarity Clear (Clear) Urine pH 7.0 (5.0-8.0) pH Units Ur Specific Stuart 1.012 (1.010-1.025) Urine Protein Negative (Neg-Trace) mg/dL Urine Glucose (UA) Normal (Normal) mg/dL Impressions Chest X-Ray 11/08/17 14:12 IMPRESSION: Stable chest without acute cardiopulmonary process. D/ / Deuce Bedolla MD / Deuce Bedolla MD Interpreting Provider: Deuce Bedolla MD Head CT 11/08/17 14:14 IMPRESSION: No acute intracranial abnormality. D/ / Ghulam Nava MD / Ghulam Nava MD Interpreting Provider: Ghulam Nava MD Active Medications Aspirin (Aspirin Ec) 81 mg PO DAILY [facility] Stop: 05/11/18 09:01 Last Admin: 11/09/17 07:45 Dose: 81 mg Benztropine Mesylate (Cogentin) 1 mg PO BID [facility] Stop: 05/10/18 21:01 Last Admin: 11/09/17 07:45 Dose: 1 mg Docusate Sodium (Colace) 100 mg PO DAILY [facility] PRN Reason: Protocol Stop: 05/11/18 09:01 Last Admin: 11/09/17 07:45 Dose: 100 mg Famotidine (Pepcid) 20 mg PO BID [facility]ENG Stop: 05/10/18 21:01 Last Admin: 11/09/17 07:45 Dose: 20 mg Haloperidol (Haldol) 5 mg PO HS SENG Stop: 05/10/18 21:01 Last Admin: 11/08/17 20:39 Dose: 5 mg Haloperidol (Haldol) 10 mg PO BID [facility]ENG Stop: 05/10/18 21:01 Last Admin: 11/09/17 07:45 Dose: 10 mg Heparin Sodium (Porcine) (Heparin) 4,000 unit IVP Q6HR PRN PRN Reason: SEE COMMENTS Stop: 05/10/18 15:59 Heparin Sodium (Porcine) (Heparin) 2,000 unit IVP Q6H PRN PRN Reason: SEE COMMENTS Stop: 05/10/18 15:59 Hydroxyzine HCl (Hydroxyzine) 10 mg PO Q6H PRN PRN Reason: Anxiety Stop: 05/10/18 18:00 Heparin Sodium/Dextrose (Heparin 25,000 Unit/500 Ml D5w) 25,000 unit in 500 mls @ 17.418 mls/hr IVC .Q24H SENG; 12 UNIT/KG/HR PRN Reason: Protocol Stop: 05/10/18 16:01 Last Titration: 11/09/17 07:23 Dose: 12 unit/kg/hr, 17.418 mls/hr Loratadine (Claritin) 10 mg PO DAILY SENG PRN Reason: Protocol Stop: 05/11/18 09:01 Last Admin: 11/09/17 07:45 Dose: 10 mg Meloxicam (Mobic) 15 mg PO DAILY [facility]ENG Stop: 05/11/18 09:01 Last Admin: 11/09/17 07:45 Dose: 15 mg Metoprolol Tartrate (Lopressor) 25 mg PO BID [facility]ENG Stop: 05/10/18 21:01 Last Admin: 11/09/17 07:45 Dose: 25 mg Multivitamins/Calcium (Thera M Plus) 1 tab PO DAILY [facility]ENG Stop: 05/11/18 09:01 Last Admin: 11/09/17 07:45 Dose: 1 tab Naloxone HCl (Narcan) 0.4 mg IVP Q2MIN PRN PRN Reason: SEE COMMENTS Stop: 05/10/18 18:02 Ondansetron HCl (Zofran) 4 mg IVP Q6HR PRN; Protocol PRN Reason: Nausea Stop: 05/11/18 00:01 Last Admin: 11/08/17 21:09 Dose: 4 mg Risperidone (Risperdal) 4 mg PO BID [facility] Stop: 05/10/18 21:01 Last Admin: 11/09/17 07:45 Dose: 4 mg Simvastatin (Zocor) 40 mg PO HS SENG PRN Reason: Protocol Stop: 05/10/18 21:01 Last Admin: 11/08/17 20:39 Dose: 40 mg Trazodone HCl (Trazodone) 50 mg PO HS PRN PRN Reason: Sleep Stop: 05/10/18 18:00 Vitamin D (Vitamin D) 1,000 unit PO DAILY [facility]ENG Stop: 05/11/18 09:01 Last Admin: 11/09/17 07:45 Dose: 1,000 unit - EKG Interpretation EKG results cardiology: personally reviewed (SR, anterior ischemia), other (12 hr tele AVG HR 64, SR, no significant pauses or arrhythmias noted.) Consult Discharge Plan - Plan Referrals: Chivo Mcfarlane MD [Primary Care Provider] - <NickolassunBritt - Last Filed: 11/09/17 15:27> Date of Encounter: 11/09/17 - Attending Attestation I examined this patient and my medical decision-making was reviewed with the PHYSIATRIST. I agree with the documented findings, disposition and treatment plan as described. Mr. Solano presents with ECG abnormalities - marked TWI anterior precordial leads. Prior ECG from August demonstrates LBBB - may mask underlying TWI presently seen. ECG prior to that is from 2011. History taking is challenging - patient is alert but not entirely oriented. He has a history of schizophrenia and lives in a residential. He is able to tell me that he is not having chest pain. He denies a history of CAD. Troponins negative x 4. He has been hemodynamically stable. Overall, findings suggest against the presence of ACS. He would not be a good candidate for invasive procedures as well. Awaiting echo to help guide mangement. Recommend stopping heparin. Continue aspirin. Assessment and Plan Discussion w patient/family: The assessment and plan as outlined above was discussed with the patient and/or family members who expressed understanding and agreement. All questions were answered. Thank you for involving us in the care of your patient. Please call with any questions. History of Present Illness History of present illness: Mr. Wagner is a 62 year old male All Systems Review: The remainder of the systems were reviewed and are negative Results 11/09/17 00:40 11/09/17 00:40 Lab Results 11/08/17 11/08/17 11/09/17 20:07 23:16 00:40 WBC Hgb Hct Plt Count INR APTT 69.7 H D Sodium Potassium Chloride Carbon Dioxide BUN Creatinine Glucose Calcium Magnesium Total Bilirubin AST ALT Alkaline Phosphatase Troponin I < 0.03 < 0.03 B-Natriuretic Peptide 11/09/17 11/09/17 11/09/17 00:40 00:40 00:40 WBC 6.8 Hgb 10.4 L Hct 30.6 L Plt Count 191 INR 1.0 APTT 64.7 H Sodium 137 Potassium 4.1 Chloride 105 Carbon Dioxide 27 BUN 10 Creatinine 0.72 Glucose 120 H Calcium 9.2 Magnesium 2.1 Total Bilirubin 0.4 AST 18 ALT 11 Alkaline Phosphatase 97 Troponin I B-Natriuretic Peptide 11/09/17 11/09/17 11/09/17 00:40 06:16 06:16 WBC Hgb Hct Plt Count INR APTT 74.8 H Sodium Potassium Chloride Carbon Dioxide BUN Creatinine Glucose Calcium Magnesium Total Bilirubin AST ALT Alkaline Phosphatase Troponin I < 0.03 B-Natriuretic Peptide 25
--- NOTE | 2017-11-09 14:31 | Internal Med Progress Note ---
Date of Encounter: 11/09/17 Time of Encounter: 14:29 - Assessment and plan (1) Syncope Current Visit: Yes Status: Acute Assessment and plan: - Undetermined etiology. CT head no acute abnormalities. Serial troponin was negative. EKG showed T-wave inversion on V1 to V4. Combined with clinical manifestations, cardiogenic syncope is likely. - I will review overnight telemetry to see if there are any arrhythmia. Continue telemetry monitoring. Patient may need loop or event recorder upon discharge. - Pending echocardiogram. - Continue aspirin and metoprolol. - Cardiology following, appreciate help. Qualifiers: Syncope type: unspecified Qualified Code(s): R55 - Syncope and collapse (2) Fall Current Visit: Yes Status: Acute Assessment and plan: - Likely cardiac related syncopal event. - See above. Qualifiers: Encounter type: initial encounter Qualified Code(s): W19.XXXA - Unspecified fall, initial encounter (3) Acute electrocardiogram changes Current Visit: Yes Status: Acute Assessment and plan: - See above. - Time Spent With Patient Total time spent is greater than 50% in coordination of care (as documented) at patient's floor/unit and/or counseling patient: Greater than 35 minutes - Subjective Interval history: Patient seen and examined in the room. He is pleasant and cooperative. he reported he cannot recall the syncopal event. When he workup, he was on the floor of the dining room. He currently denies lightheadedness, palpitation, chest pain, shortness breath. - Constitutional Vitals: Temp Pulse Resp BP Pulse Ox 97.7 F 68 16 122/76 98 11/09/17 11:16 11/09/17 11:16 11/09/17 11:16 11/09/17 11:16 11/09/17 11:16 General appearance: Present: A&O X 2, pleasant, no acute distress, answers questions appropriately Exam: PHYSICAL EXAMINATION: GENERAL APPEARANCE: The patient is alert, oriented and in no acute distress. HEENT: Head is normocephalic. The sinuses are nontender. Pupils are equal and reactive. The nares are patent. Oropharynx clear without lesions. NECK: Supple without lymphadenopathy. HEART: Regular rate and rhythm. LUNGS: No crackles or wheezes are heard. ABDOMEN: Soft, nontender, nondistended with good bowel sounds heard. Inguinal area is normal. EXTREMITIES: Without cyanosis, clubbing or edema. NEUROLOGICAL: Gross nonfocal. SKIN: Warm and dry without any rash. Internal Medicine: Result - Labs CBC & Chem 7: 11/09/17 00:40 11/09/17 00:40 Labs: Short CBC 11/09/17 Range/Units 00:40 WBC 6.8 (4.3-11.1) K/mcL Hgb 10.4 L (12.9-16.9) g/dL Hct 30.6 L (37.5-50.1) % Plt Count 191 (140-400) K/mcL Neutrophils # 3.8 (1.6-8.9) K/mcL BMP 11/09/17 00:40 Sodium 137 Potassium 4.1 Chloride 105 Carbon Dioxide 27 BUN 10 Creatinine 0.72 Glucose 120 H Calcium 9.2 Cardiac Enzymes 11/08/17 11/09/17 11/09/17 Range/Units 20:07 00:40 06:16 Troponin I < 0.03 < 0.03 < 0.03 (< 0.04) ng/mL Liver Function 11/09/17 Range/Units 00:40 Total Bilirubin 0.4 (0.3-1.0) mg/dL AST 18 (13-39) Units/L ALT 11 (7-52) Units/L Alkaline Phosphatase 97 (34-104) Units/L Albumin 3.8 (3.5-5.7) g/dL - ABG Interpretation ABG results: PT/INR, D-dimer PT 11.0 Seconds (9.4-12.1) 11/09/17 00:40 Consult Discharge Plan - Plan Referrals: Chivo Mcfarlane MD [Primary Care Provider] -
[2017-11-09] MEDS: *HR* Heparin 5,000 UNIT/ML VIAL SQ SCH (17:22)
[2017-11-10 05:23] LABS: Hematocrit 31.3 % (37.5-50.1); Hemoglobin 10.3 g/dL (12.9-16.9); Mean Corpuscular HGB Conc 32.9 g/dL (31.6-35.5); Mean Corpuscular Hemoglobin 34.9 pg (28.0-33.3); Mean Corpuscular Volume 106.1 fL (83.0-100.0); Mean Platelet Volume 9.3 fL (9.4-12.4); Platelet Count 193 K/mcL (140-400); Red Blood Count 2.95 M/mcL (4.19-5.50); Red Cell Distribution Width 14.3 % (11.5-14.5); Segmented Neutrophils % 54.1 %
[2017-11-10 05:24] LABS: Basophils % 0.5 %; Eosinophils # 0.3 K/mcL (0.0-0.6); Immature Granulocytes % 0.3 % (0-4); Lymphocytes # 2.1 K/mcL (0.6-4.6); Lymphocytes % 31.9 %; Monocytes # 0.5 K/mcL (0.0-1.3); Monocytes % 8.2 %; Neutrophils # 3.6 K/mcL (1.6-8.9)
[2017-11-10] MEDS: *HR* Heparin 5,000 UNIT/ML VIAL SQ SCH ×2 (05:24→17:21)
[2017-11-10 05:44] LABS: BUN/Creatinine Ratio 17 (6-26); Blood Urea Nitrogen 13 mg/dL (8-23); Calcium 8.9 mg/dL (8.6-10.3); Carbon Dioxide 26 mEq/L (23-29); Chloride 106 mEq/L (98-107); Glucose 96 mg/dL (70-105); Osmolality,Calculated 286 (280-300); Potassium 3.9 mEq/L (3.5-5.1); Sodium 138 mEq/L (136-145); eGFR For African Americans > 60 (> 60); eGFR For Non-African Americans > 60 (> 60)
[2017-11-10] MEDS: risperiDONE 1 MG TABLET PO SCH ×2 (10:04→21:33)
[2017-11-10] MEDS: Multivit/Ca/Min/Fe/FA 1 TAB TABLET PO SCH (10:04)
[2017-11-10] MEDS: Aspirin Enteric Coated 81 MG Tablet PO SCH (10:04)
[2017-11-10] MEDS: Loratadine 10 MG TABLET PO SCH (10:04)
[2017-11-10] MEDS: Cholecalciferol (D-3) 1,000 UNIT TABLET PO SCH (10:04)
[2017-11-10] MEDS: Famotidine 20 MG TABLET PO SCH ×2 (10:04→21:31)
--- NOTE | 2017-11-10 14:56 | Internal Med Progress Note ---
Date of Encounter: 11/10/17 Time of Encounter: 14:56 - Assessment and plan (1) Syncope Current Visit: Yes Status: Acute Assessment and plan: - Undetermined etiology. CT head with no acute abnormalities. Serial troponin negative. EKG showed T-wave inversion on V1 to V4. Combined with clinical manifestations, cardiogenic syncope is likely. - Continue telemetry monitoring, SR - echocardiogram completed, report pending. - Continue aspirin, statin, and metoprolol. - Cardiology following, recommend medical management Qualifiers: Syncope type: unspecified Qualified Code(s): R55 - Syncope and collapse (2) Fall Current Visit: Yes Status: Acute Assessment and plan: - Likely cardiac related syncopal event, see above. Qualifiers: Encounter type: initial encounter Qualified Code(s): W19.XXXA - Unspecified fall, initial encounter (3) Acute electrocardiogram changes Current Visit: Yes Status: Acute Assessment and plan: - Medical management per cardiology recommendations. - Time Spent With Patient Total time spent is greater than 50% in coordination of care (as documented) at patient's floor/unit and/or counseling patient: - Subjective Interval history: Patient is sitting up in bed, oriented to person place and time but conversation all over the place, difficulty with concentration. Pleasant but flights of ideas - Constitutional Vitals: Temp Pulse Resp BP Pulse Ox 98.3 F 72 16 99/60 96 11/10/17 11:29 11/10/17 11:29 11/10/17 11:29 11/10/17 11:29 11/10/17 11:29 General appearance: Present: cooperative, A&O X 3, pleasant, no acute distress. Absent: answers questions appropriately - Head Head exam: Present: atraumatic, normocephalic - Eye Eye exam: Present: PERRL, conjuntiva pink, sclera anicteric Pupils: Present: PERRL - Neck Neck exam general surgery: Present: supple, trachea midline. Absent: lymphadenopathy - Respiratory Respiratory exam: Present: CTAB. Absent: accessory muscle use, rales, rhonchi, wheezes - Cardiovascular Cardiovascular exam: Present: RRR, +S1, +S2. Absent: diastolic murmur, gallop, rubs, systolic murmur - GI/Abdominal GI/Abdominal exam: Present: normal bowel sounds, soft, no peritoneal signs. Absent: distended, tenderness - Extremities Exam Extremities exam: Present: warm, radial pulses palpable and symmetrical. Absent : calf tenderness, cyanotic, pedal edema - Neurological Exam Neurological exam: Present: CN II-XII intact, oriented X3, no focal deficits. Absent: pronater drift, facial droop, speech deficit - Skin Skin exam: Present: dry, intact, normal color, warm Internal Medicine: Result - Labs CBC & Chem 7: 11/10/17 03:58 11/10/17 03:58 Labs: Short CBC 11/10/17 Range/Units 03:58 WBC 6.6 (4.3-11.1) K/mcL Hgb 10.3 L (12.9-16.9) g/dL Hct 31.3 L (37.5-50.1) % Plt Count 193 (140-400) K/mcL Neutrophils # 3.6 (1.6-8.9) K/mcL BMP 11/10/17 03:58 Sodium 138 Potassium 3.9 Chloride 106 Carbon Dioxide 26 BUN 13 Creatinine 0.76 Glucose 96 Calcium 8.9 - ABG Interpretation ABG results: PT/INR, D-dimer PT 11.0 Seconds (9.4-12.1) 11/09/17 00:40 Consult Discharge Plan - Plan Referrals: Chivo Mcfarlane MD [Primary Care Provider] -
[2017-11-10] MEDS: traZODone 50 MG TABLET PO PRN (21:32)
[2017-11-11 05:00] LABS: Basophils % 0.4 %; Eosinophils # 0.3 K/mcL (0.0-0.6); Eosinophils % 4.2 %; Hematocrit 32.4 % (37.5-50.1); Hemoglobin 10.7 g/dL (12.9-16.9); Immature Granulocytes % 0.3 % (0-4); Lymphocytes # 1.9 K/mcL (0.6-4.6); Lymphocytes % 27.9 %; Mean Corpuscular Hemoglobin 35.8 pg (28.0-33.3); Mean Corpuscular Volume 108.4 fL (83.0-100.0); Mean Platelet Volume 9.4 fL (9.4-12.4); Monocytes # 0.6 K/mcL (0.0-1.3); Monocytes % 8.7 %; Neutrophils # 4.1 K/mcL (1.6-8.9); Platelet Count 208 K/mcL (140-400); Red Blood Count 2.99 M/mcL (4.19-5.50); Red Cell Distribution Width 14.2 % (11.5-14.5); Segmented Neutrophils % 58.5 %
[2017-11-11 05:14] LABS: BUN/Creatinine Ratio 19 (6-26); Blood Urea Nitrogen 12 mg/dL (8-23); Calcium 8.9 mg/dL (8.6-10.3); Carbon Dioxide 26 mEq/L (23-29); Chloride 104 mEq/L (98-107); Glucose 113 mg/dL (70-105); Osmolality,Calculated 283 (280-300); Potassium 3.8 mEq/L (3.5-5.1); Sodium 136 mEq/L (136-145); eGFR For African Americans > 60 (> 60); eGFR For Non-African Americans > 60 (> 60)
[2017-11-11] MEDS: *HR* Heparin 5,000 UNIT/ML VIAL SQ SCH ×2 (05:22→17:44)
--- NOTE | 2017-11-11 07:54 | Event Note ---
Date of Encounter: 11/11/17 Time of Encounter: 07:53 - Cardiology Event Note Echo resulted--LVEF 60%. Normal LV chamber size, wall thickness and function. Mild left ventricular diastolic dysfunction. Normal right ventricular structure and function.Unable to estimate RVSP due to lack of TR jet.No significant valvular dysfunction. Cardiology signing off. Reconsult PRN.
[2017-11-11] MEDS: Loratadine 10 MG TABLET PO SCH (08:32)
[2017-11-11] MEDS: Multivit/Ca/Min/Fe/FA 1 TAB TABLET PO SCH (08:32)
[2017-11-11] MEDS: risperiDONE 1 MG TABLET PO SCH ×2 (08:32→20:54)
[2017-11-11] MEDS: Aspirin Enteric Coated 81 MG Tablet PO SCH (08:32)
[2017-11-11] MEDS: Famotidine 20 MG TABLET PO SCH ×2 (08:32→20:54)
[2017-11-11] MEDS: Cholecalciferol (D-3) 1,000 UNIT TABLET PO SCH (08:32)
--- NOTE | 2017-11-11 13:44 | Internal Med Progress Note ---
Date of Encounter: 11/11/17 Time of Encounter: 13:41 - Assessment and plan (1) Syncope Current Visit: Yes Status: Acute Assessment and plan: - Undetermined etiology. CT head with no acute abnormalities. Serial troponins negative. EKG showed T-wave inversion on V1 to V4. Combined with clinical manifestations, cardiogenic syncope is likely. - Continue telemetry monitoring, SR - echocardiogram completed, reviewed - LVEF 60%, normal LV chamber size, wall thickness and function. Mild left ventricular diastolic dysfunction with normal right ventricular structure and function. Unable to estimate are VSP due to lack of TR jet. No significant valvular dysfunction. - Continue aspirin, statin, and metoprolol. - Cardiology was following, recommend medical management, they have signed off. Qualifiers: Syncope type: unspecified Qualified Code(s): R55 - Syncope and collapse (2) Fall Current Visit: Yes Status: Acute Assessment and plan: - Likely cardiac related syncopal event, fall precautions. Qualifiers: Encounter type: initial encounter Qualified Code(s): W19.XXXA - Unspecified fall, initial encounter (3) Acute electrocardiogram changes Current Visit: Yes Status: Acute Assessment and plan: Medical management as per cardiology recommendations. - Time Spent With Patient Total time spent is greater than 50% in coordination of care (as documented) at patient's floor/unit and/or counseling patient: - Subjective Interval history: Patient is sitting up in bed, oriented to person and place, little withdrawn this am, not as antimated, playing with stuffed dog. - Constitutional Vitals: Temp Pulse Resp BP Pulse Ox 98.1 F 72 18 129/76 97 11/11/17 11:10 11/11/17 11:10 11/11/17 11:10 11/11/17 11:10 11/11/17 11:10 General appearance: Present: cooperative, A&O X 2, pleasant. Absent: answers questions appropriately - Head Head exam: Present: atraumatic, normocephalic - Eye Eye exam: Present: PERRL, conjuntiva pink, sclera anicteric Pupils: Present: PERRL - Neck Neck exam general surgery: Present: supple, trachea midline. Absent: lymphadenopathy - Respiratory Respiratory exam: Present: CTAB. Absent: accessory muscle use, rales, rhonchi, wheezes - Cardiovascular Cardiovascular exam: Present: RRR, +S1, +S2. Absent: diastolic murmur, gallop, rubs, systolic murmur - GI/Abdominal GI/Abdominal exam: Present: normal bowel sounds, soft, no peritoneal signs. Absent: distended, tenderness - Extremities Exam Extremities exam: Present: warm, radial pulses palpable and symmetrical. Absent : calf tenderness, cyanotic, pedal edema - Neurological Exam Neurological exam: Present: alert, CN II-XII intact, no focal deficits. Absent : pronater drift, facial droop, speech deficit - Skin Skin exam: Present: dry, normal color, warm Additional comments: fw scabbed areas patient picking at Internal Medicine: Result - Labs CBC & Chem 7: 11/11/17 03:26 11/11/17 03:26 Labs: Short CBC 11/11/17 Range/Units 03:26 WBC 6.9 (4.3-11.1) K/mcL Hgb 10.7 L (12.9-16.9) g/dL Hct 32.4 L (37.5-50.1) % Plt Count 208 (140-400) K/mcL Neutrophils # 4.1 (1.6-8.9) K/mcL BMP 11/11/17 03:26 Sodium 136 Potassium 3.8 Chloride 104 Carbon Dioxide 26 BUN 12 Creatinine 0.64 L Glucose 113 H Calcium 8.9 - ABG Interpretation ABG results: PT/INR, D-dimer PT 11.0 Seconds (9.4-12.1) 11/09/17 00:40 - Impressions Impressions Echocardiogram 11/10/17 11:53 Impressions: LVEF 60%. Normal LV chamber size, wall thickness and function. Mild left ventricular diastolic dysfunction. Normal right ventricular structure and function. Unable to estimate RVSP due to lack of TR jet. No significant valvular dysfunction. Left Ventricular Wall Motion: Rest Echo Findings All wall segments showed normal motion. Findings: Study Quality * Technically adequate exam. ECG Findings * Normal sinus rhythm. Left Ventricle * LVEF 60%. * Normal LV chamber size, wall thickness and function. * Mild left ventricular diastolic dysfunction. Right Ventricle * Normal right ventricular structure and function. Left Atrium * Mild to moderately dilated left atrium. Right Atrium * Normal right atrial size. Interatrial Septum * Interatrial septum not well evaluated. Aortic Valve * Trileaflet aortic valve with normal function. * No aortic regurgitation. * No aortic stenosis. Mitral Valve * Normal mitral valve structure and function. * No mitral regurgitation. * No mitral stenosis. Tricuspid Valve * Normal tricuspid valve structure and function. * No tricuspid regurgitation. * Unable to estimate RVSP due to lack of TR jet. Pulmonic Valve * Normal pulmonic valve structure and function. * No pulmonic regurgitation. Aorta * Normally sized aortic root. Pericardium * The pericardium appears normal. IVC * Normal IVC dimensions and inspiratory collapse. Pulmonary Artery * Normal visualized portions of the main pulmonary artery. Consult Discharge Plan - Plan Referrals: Chivo Mcfarlane MD [Primary Care Provider] -
[2017-11-11] MEDS: Nicotine 21 MG PATCH.TD24 TD SCH (15:07)
[2017-11-11] MEDS: traZODone 50 MG TABLET PO PRN (20:54)
[2017-11-12] MEDS: *HR* Heparin 5,000 UNIT/ML VIAL SQ SCH ×2 (05:42→17:15)
[2017-11-12] MEDS: Multivit/Ca/Min/Fe/FA 1 TAB TABLET PO SCH (08:33)
[2017-11-12] MEDS: risperiDONE 1 MG TABLET PO SCH ×2 (08:34→19:50)
[2017-11-12] MEDS: Aspirin Enteric Coated 81 MG Tablet PO SCH (08:34)
[2017-11-12] MEDS: Famotidine 20 MG TABLET PO SCH ×2 (08:34→19:50)
[2017-11-12] MEDS: Loratadine 10 MG TABLET PO SCH (08:34)
[2017-11-12] MEDS: Cholecalciferol (D-3) 1,000 UNIT TABLET PO SCH (08:34)
[2017-11-12] MEDS: Nicotine 21 MG PATCH.TD24 TD SCH (08:34)
--- NOTE | 2017-11-12 13:28 | Internal Med Progress Note ---
Date of Encounter: 11/12/17 Time of Encounter: 13:25 - Assessment and plan (1) Syncope Current Visit: Yes Status: Acute Assessment and plan: - Undetermined etiology. CT head with no acute abnormalities. Serial troponins negative. EKG showed T-wave inversion on V1 to V4. Cardiogenic syncope is likely. - Continue telemetry monitoring, SR - echocardiogram completed and reviewed - LVEF 60%, normal LV chamber size, wall thickness and function. Mild left ventricular diastolic dysfunction with normal right ventricular structure and function. No significant valvular dysfunction. - Continue aspirin, statin, and metoprolol. - Cardiology was following, recommend medical management, they have signed off. Qualifiers: Syncope type: unspecified Qualified Code(s): R55 - Syncope and collapse (2) Fall Current Visit: Yes Status: Acute Assessment and plan: Likely cardiac related syncopal event, continue fall precautions. Qualifiers: Encounter type: initial encounter Qualified Code(s): W19.XXXA - Unspecified fall, initial encounter (3) Acute electrocardiogram changes Current Visit: Yes Status: Acute Assessment and plan: Medical management per cardiology recommendations. (4) Diabetes mellitus Current Visit: Yes Status: Chronic Assessment and plan: Continue Accu-Cheks and coverage scale . Qualifiers: Diabetes mellitus type: type 2 Diabetes mellitus nursing home insulin use: without nursing home use Diabetes mellitus complication status: without complication Qualified Code(s): E11.9 - Type 2 diabetes mellitus without complications (5) Tobacco abuse Current Visit: Yes Status: Chronic Assessment and plan: cessation - Time Spent With Patient Total time spent is greater than 50% in coordination of care (as documented) at patient's floor/unit and/or counseling patient: - Subjective Interval history: Patient is sitting up in bed eating breakfast. He has no complaints today. He is much more alert and interactive today - Constitutional Vitals: Temp Pulse Resp BP Pulse Ox 97.5 F L 66 18 104/61 97 11/12/17 11:14 11/12/17 11:14 11/12/17 11:14 11/12/17 11:14 11/12/17 11:14 General appearance: Present: cooperative, A&O X 2, pleasant. Absent: answers questions appropriately - Head Head exam: Present: atraumatic, normocephalic - Eye Eye exam: Present: PERRL, conjuntiva pink, sclera anicteric Pupils: Present: PERRL - Neck Neck exam general surgery: Present: supple, trachea midline. Absent: lymphadenopathy - Respiratory Respiratory exam: Present: decreased breath sounds, CTAB. Absent: accessory muscle use, rales, rhonchi, wheezes - Cardiovascular Cardiovascular exam: Present: RRR, +S1, +S2. Absent: diastolic murmur, gallop, rubs, systolic murmur - GI/Abdominal GI/Abdominal exam: Present: normal bowel sounds, soft, no peritoneal signs. Absent: distended, tenderness - Extremities Exam Extremities exam: Present: warm, radial pulses palpable and symmetrical. Absent : calf tenderness, cyanotic, pedal edema - Neurological Exam Neurological exam: Present: alert, CN II-XII intact, no focal deficits. Absent : pronater drift, facial droop, speech deficit - Skin Skin exam: Present: dry, normal color, warm Internal Medicine: Result - Labs CBC & Chem 7: 11/11/17 03:26 11/11/17 03:26 - ABG Interpretation ABG results: PT/INR, D-dimer PT 11.0 Seconds (9.4-12.1) 11/09/17 00:40 Consult Discharge Plan - Plan Referrals: Chivo Mcfarlane MD [Primary Care Provider] -
[2017-11-13 04:29] LABS: Hematocrit 33.5 % (37.5-50.1); Hemoglobin 11.2 g/dL (12.9-16.9); Mean Corpuscular HGB Conc 33.4 g/dL (31.6-35.5); Mean Corpuscular Hemoglobin 35.8 pg (28.0-33.3); Mean Platelet Volume 9.1 fL (9.4-12.4); Platelet Count 183 K/mcL (140-400); Red Blood Count 3.13 M/mcL (4.19-5.50); Red Cell Distribution Width 14.1 % (11.5-14.5)
[2017-11-13 04:50] LABS: BUN/Creatinine Ratio 20 (6-26); Blood Urea Nitrogen 17 mg/dL (8-23); Calcium 9.4 mg/dL (8.6-10.3); Carbon Dioxide 27 mEq/L (23-29); Chloride 104 mEq/L (98-107); Glucose 106 mg/dL (70-105); Osmolality,Calculated 288 (280-300); Potassium 3.8 mEq/L (3.5-5.1); Sodium 138 mEq/L (136-145); eGFR For African Americans > 60 (> 60); eGFR For Non-African Americans > 60 (> 60)
[2017-11-13] MEDS: *HR* Heparin 5,000 UNIT/ML VIAL SQ SCH ×2 (06:01→17:28)
[2017-11-13] MEDS: Aspirin Enteric Coated 81 MG Tablet PO SCH (10:05)
[2017-11-13] MEDS: risperiDONE 1 MG TABLET PO SCH ×2 (10:05→20:29)
[2017-11-13] MEDS: Cholecalciferol (D-3) 1,000 UNIT TABLET PO SCH (10:05)
[2017-11-13] MEDS: Loratadine 10 MG TABLET PO SCH (10:05)
[2017-11-13] MEDS: Famotidine 20 MG TABLET PO SCH ×2 (10:05→20:28)
[2017-11-13] MEDS: Multivit/Ca/Min/Fe/FA 1 TAB TABLET PO SCH (10:06)
[2017-11-13] MEDS: Nicotine 21 MG PATCH.TD24 TD SCH (10:06)
--- NOTE | 2017-11-13 11:50 | Internal Med Progress Note ---
Date of Encounter: 11/13/17 Time of Encounter: 11:49 - Assessment and plan (1) Syncope Current Visit: Yes Status: Acute Assessment and plan: - Undetermined etiology. CT head with no acute abnormalities. Serial troponins negative. EKG showed T-wave inversion on V1 to V4. Cardiogenic syncope is likely. - No dysrhythmias on telemetry so was discontinued, he was in sinus rhythm - echocardiogram completed and reviewed - LVEF 60%, normal LV chamber size, wall thickness and function. Mild left ventricular diastolic dysfunction with normal right ventricular structure and function. No significant valvular dysfunction. - Continue aspirin, statin, and metoprolol. - Cardiology was following, recommend medical management, they have signed off. Qualifiers: Syncope type: unspecified Qualified Code(s): R55 - Syncope and collapse (2) Fall Current Visit: Yes Status: Acute Assessment and plan: Likely cardiac related syncopal event, continue fall precautions. Assist out of bed for meals Qualifiers: Encounter type: initial encounter Qualified Code(s): W19.XXXA - Unspecified fall, initial encounter (3) Acute electrocardiogram changes Current Visit: Yes Status: Acute Assessment and plan: Medical management per cardiology recommendations in the chart. (4) Diabetes mellitus Current Visit: Yes Status: Chronic Assessment and plan: Continue Accu-Cheks and coverage scale Accu-Cheks acceptable . Qualifiers: Diabetes mellitus type: type 2 Diabetes mellitus usp insulin use: without usp use Diabetes mellitus complication status: without complication Qualified Code(s): E11.9 - Type 2 diabetes mellitus without complications (5) Tobacco abuse Current Visit: Yes Status: Chronic Assessment and plan: cessation advised the patient not receptive though he is not asking for cigarettes here - Time Spent With Patient Total time spent is greater than 50% in coordination of care (as documented) at patient's floor/unit and/or counseling patient: - Subjective Interval history: Patient is lying in bedt. He has no complaints today. He is sleepy - Constitutional Vitals: Temp Pulse Resp BP Pulse Ox 97.8 F 69 17 100/64 95 11/13/17 11:40 11/13/17 11:40 11/13/17 11:40 11/13/17 11:40 11/13/17 11:40 General appearance: Present: cooperative, A&O X 2, pleasant. Absent: answers questions appropriately - Head Head exam: Present: atraumatic, normocephalic - Eye Eye exam: Present: PERRL, conjuntiva pink, sclera anicteric Pupils: Present: PERRL - Neck Neck exam general surgery: Present: supple, trachea midline. Absent: lymphadenopathy - Respiratory Respiratory exam: Present: decreased breath sounds, CTAB. Absent: accessory muscle use, rales, rhonchi, wheezes - Cardiovascular Cardiovascular exam: Present: RRR, +S1, +S2. Absent: diastolic murmur, gallop, rubs, systolic murmur - GI/Abdominal GI/Abdominal exam: Present: normal bowel sounds, soft, no peritoneal signs. Absent: distended, tenderness - Extremities Exam Extremities exam: Present: warm, radial pulses palpable and symmetrical. Absent : calf tenderness, cyanotic, pedal edema - Neurological Exam Neurological exam: Present: CN II-XII intact, no focal deficits. Absent: pronater drift, facial droop, speech deficit - Skin Skin exam: Present: dry, intact, normal color, warm Internal Medicine: Result - Labs CBC & Chem 7: 11/13/17 04:12 11/13/17 04:12 Labs: Short CBC 11/13/17 Range/Units 04:12 WBC 7.7 (4.3-11.1) K/mcL Hgb 11.2 L (12.9-16.9) g/dL Hct 33.5 L (37.5-50.1) % Plt Count 183 (140-400) K/mcL BMP 11/13/17 04:12 Sodium 138 Potassium 3.8 Chloride 104 Carbon Dioxide 27 BUN 17 Creatinine 0.85 Glucose 106 H Calcium 9.4 - ABG Interpretation ABG results: PT/INR, D-dimer PT 11.0 Seconds (9.4-12.1) 11/09/17 00:40 Consult Discharge Plan - Plan Referrals: Chivo Mcfarlane MD [Primary Care Provider] -
[2017-11-14] MEDS: *HR* Heparin 5,000 UNIT/ML VIAL SQ SCH ×2 (06:18→17:16)
[2017-11-14] MEDS: Multivit/Ca/Min/Fe/FA 1 TAB TABLET PO SCH (09:17)
[2017-11-14] MEDS: Cholecalciferol (D-3) 1,000 UNIT TABLET PO SCH (09:17)
[2017-11-14] MEDS: Famotidine 20 MG TABLET PO SCH ×2 (09:17→20:30)
[2017-11-14] MEDS: Nicotine 21 MG PATCH.TD24 TD SCH (09:17)
[2017-11-14] MEDS: Aspirin Enteric Coated 81 MG Tablet PO SCH (09:17)
[2017-11-14] MEDS: risperiDONE 1 MG TABLET PO SCH ×2 (09:18→20:30)
[2017-11-14] MEDS: Loratadine 10 MG TABLET PO SCH (09:18)
--- NOTE | 2017-11-14 10:36 | Internal Med Progress Note ---
Date of Encounter: 11/14/17 Time of Encounter: 10:34 - Assessment and plan (1) Syncope Current Visit: Yes Status: Acute Qualifiers: Syncope type: unspecified Qualified Code(s): R55 - Syncope and collapse (2) Fall Current Visit: Yes Status: Acute Qualifiers: Encounter type: initial encounter Qualified Code(s): W19.XXXA - Unspecified fall, initial encounter (3) Acute electrocardiogram changes Current Visit: Yes Status: Acute (4) Diabetes mellitus Current Visit: Yes Status: Chronic Qualifiers: Diabetes mellitus type: type 2 Diabetes mellitus fdc insulin use: without manager terminal use Diabetes mellitus complication status: without complication Qualified Code(s): E11.9 - Type 2 diabetes mellitus without complications (5) Tobacco abuse Current Visit: Yes Status: Chronic - Time Spent With Patient Total time spent is greater than 50% in coordination of care (as documented) at patient's floor/unit and/or counseling patient: - Subjective Interval history: Patient is very alert and cooperative today. He is interacting appropriately. He is holding his dog. He answered questions and follow commands. He has no voiced complaints. - Constitutional Vitals: Temp Pulse Resp BP Pulse Ox 98.7 F 63 16 123/68 99 11/14/17 07:39 11/14/17 07:39 11/14/17 07:39 11/14/17 07:39 11/14/17 07:39 General appearance: Present: cooperative, A&O X 2, pleasant, answers questions appropriately - Head Head exam: Present: atraumatic, normocephalic - Eye Eye exam: Present: PERRL, conjuntiva pink, sclera anicteric Pupils: Present: PERRL - Neck Neck exam general surgery: Present: supple, trachea midline. Absent: lymphadenopathy - Respiratory Respiratory exam: Present: CTAB. Absent: accessory muscle use, rales, rhonchi, wheezes - Cardiovascular Cardiovascular exam: Present: RRR, +S1, +S2. Absent: diastolic murmur, gallop, rubs, systolic murmur - GI/Abdominal GI/Abdominal exam: Present: normal bowel sounds, soft, no peritoneal signs. Absent: distended, tenderness - Extremities Exam Extremities exam: Present: warm, radial pulses palpable and symmetrical. Absent : calf tenderness, cyanotic, pedal edema - Neurological Exam Neurological exam: Present: alert, CN II-XII intact, no focal deficits. Absent : pronater drift, facial droop, speech deficit - Skin Skin exam: Present: dry, intact, normal color, warm Additional comments: Some bruising of her left lower extremity patient wears ROM boot when out of bed Internal Medicine: Result - Labs CBC & Chem 7: 11/13/17 04:12 11/13/17 04:12 - ABG Interpretation ABG results: PT/INR, D-dimer PT 11.0 Seconds (9.4-12.1) 11/09/17 00:40 Consult Discharge Plan - Plan Referrals: Chivo Mcfarlane MD [Primary Care Provider] -
[2017-11-15] MEDS: *HR* Heparin 5,000 UNIT/ML VIAL SQ SCH ×2 (06:28→17:35)
[2017-11-15] MEDS: Cholecalciferol (D-3) 1,000 UNIT TABLET PO SCH (08:11)
[2017-11-15] MEDS: Famotidine 20 MG TABLET PO SCH ×2 (08:11→21:15)
[2017-11-15] MEDS: Loratadine 10 MG TABLET PO SCH (08:11)
[2017-11-15] MEDS: Aspirin Enteric Coated 81 MG Tablet PO SCH (08:11)
[2017-11-15] MEDS: risperiDONE 1 MG TABLET PO SCH ×2 (08:11→21:15)
[2017-11-15] MEDS: Multivit/Ca/Min/Fe/FA 1 TAB TABLET PO SCH (08:11)
[2017-11-15] MEDS: Nicotine 21 MG PATCH.TD24 TD SCH (08:12)
--- NOTE | 2017-11-15 16:54 | Internal Med Progress Note ---
Date of Encounter: 11/15/17 Time of Encounter: 16:52 - Assessment and plan (1) Acute electrocardiogram changes Current Visit: Yes Status: Acute Assessment and plan: Medical management as per cardiology recommendations in the chart. (2) Diabetes mellitus Current Visit: Yes Status: Chronic Assessment and plan: Continue Accu-Cheks and coverage scale . 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 Diabetes mellitus complication status: without complication Qualified Code(s): E11.9 - Type 2 diabetes mellitus without complications (3) Tobacco abuse Current Visit: Yes Status: Chronic Assessment and plan: cessation advised, the patient not receptive though he is not asking for cigarettes here, question understanding (4) Urinary retention Current Visit: Yes Status: Acute Assessment and plan: Wallace catheter placed for urinary retention Flomax started and will be continued Discharged with Wallace catheter and follow up from [place] with urology - Time Spent With Patient Total time spent is greater than 50% in coordination of care (as documented) at patient's floor/unit and/or counseling patient: - Subjective Interval history: Patient is very alert and cooperative today. He is interacting appropriately. He is holding his stuffed dog. He answered questions and follow commands. He has no voiced complaints. Wallace catheter is intact for urinary retention. There is a bed at [facility] facility and we got a message at [facility] cessation was obtained but when [facility] was called back the nursing staff knew nothing about it so he will not be discharged this afternoon - Constitutional Vitals: Temp Pulse Resp BP Pulse Ox 98.3 F 66 15 134/77 97 11/15/17 15:34 11/15/17 15:34 11/15/17 15:34 11/15/17 15:34 11/15/17 15:34 General appearance: Present: cooperative, A&O X 2, pleasant. Absent: answers questions appropriately - Head Head exam: Present: atraumatic, normocephalic - Eye Eye exam: Present: PERRL, conjuntiva pink, sclera anicteric Pupils: Present: PERRL - Neck Neck exam general surgery: Present: supple, trachea midline. Absent: lymphadenopathy - Respiratory Respiratory exam: Present: CTAB. Absent: accessory muscle use, rales, rhonchi, wheezes - Cardiovascular Cardiovascular exam: Present: RRR, +S1, +S2. Absent: diastolic murmur, gallop, rubs, systolic murmur - GI/Abdominal GI/Abdominal exam: Present: normal bowel sounds, soft, no peritoneal signs. Absent: distended, tenderness - Extremities Exam Extremities exam: Present: warm, radial pulses palpable and symmetrical. Absent : calf tenderness, cyanotic, pedal edema - Neurological Exam Neurological exam: Present: CN II-XII intact, no focal deficits. Absent: pronater drift, facial droop, speech deficit - Skin Skin exam: Present: dry, intact, normal color, warm Internal Medicine: Result - Labs CBC & Chem 7: 11/13/17 04:12 11/13/17 04:12 - ABG Interpretation ABG results: PT/INR, D-dimer PT 11.0 Seconds (9.4-12.1) 11/09/17 00:40 Consult Discharge Plan - Plan Referrals: Chivo Mcfarlane MD [Primary Care Provider] -
[2017-11-16 04:58] LABS: Basophils % 0.5 %; Eosinophils # 0.3 K/mcL (0.0-0.6); Eosinophils % 3.8 %; Hematocrit 31.9 % (37.5-50.1); Immature Granulocytes % 0.3 % (0-4); Lymphocytes # 2.2 K/mcL (0.6-4.6); Lymphocytes % 29.3 %; Mean Corpuscular HGB Conc 34.5 g/dL (31.6-35.5); Mean Corpuscular Hemoglobin 36.5 pg (28.0-33.3); Mean Platelet Volume 9.3 fL (9.4-12.4); Monocytes # 0.7 K/mcL (0.0-1.3); Neutrophils # 4.3 K/mcL (1.6-8.9); Platelet Count 219 K/mcL (140-400); Red Blood Count 3.01 M/mcL (4.19-5.50); Red Cell Distribution Width 13.9 % (11.5-14.5); Segmented Neutrophils % 57.1 %
[2017-11-16 05:26] LABS: BUN/Creatinine Ratio 26 (6-26); Blood Urea Nitrogen 17 mg/dL (8-23); Calcium 9.4 mg/dL (8.6-10.3); Carbon Dioxide 25 mEq/L (23-29); Chloride 106 mEq/L (98-107); Glucose 100 mg/dL (70-105); Osmolality,Calculated 292 (280-300); Potassium 3.8 mEq/L (3.5-5.1); Sodium 140 mEq/L (136-145); eGFR For African Americans > 60 (> 60); eGFR For Non-African Americans > 60 (> 60)
[2017-11-16] MEDS: *HR* Heparin 5,000 UNIT/ML VIAL SQ SCH (06:17)
[2017-11-16] MEDS: Nicotine 21 MG PATCH.TD24 TD SCH (08:19)
[2017-11-16] MEDS: Multivit/Ca/Min/Fe/FA 1 TAB TABLET PO SCH (08:20)
[2017-11-16] MEDS: Loratadine 10 MG TABLET PO SCH (08:20)
[2017-11-16] MEDS: Famotidine 20 MG TABLET PO SCH (08:20)
[2017-11-16] MEDS: risperiDONE 1 MG TABLET PO SCH (08:20)
[2017-11-16] MEDS: Aspirin Enteric Coated 81 MG Tablet PO SCH (08:21)
[2017-11-16] MEDS: Cholecalciferol (D-3) 1,000 UNIT TABLET PO SCH (08:21)
[2017-11-16 11:51] VITALS: BP 119/66
--- NOTE | 2017-11-16 14:28 | Discharge Summary ---
- NOTES TO OUTPATIENT PROVIDER Notes to Outpatient Provider: Syncopal event seen by cardiology recommend medical managment , He will need follow up with urology concerning urinary retention Date of Encounter: 11/16/17 Time of Encounter: 14:25 - Discharge Diagnosis (1) Acute electrocardiogram changes Priority: Primary Status: Acute (2) Diabetes mellitus Priority: Secondary Status: Chronic Qualifiers: Diabetes mellitus type: type 2 Diabetes mellitus rat exterminator insulin use: without assisted use Diabetes mellitus complication status: without complication Qualified Code(s): E11.9 - Type 2 diabetes mellitus without complications (3) Tobacco abuse Priority: Secondary Status: Chronic (4) Urinary retention Priority: Secondary Status: Acute Assessment and Plan: Wallace catheter placed for urinary retention Flomax started and will be continued Discharged with Wallace catheter and follow up from [place] with urology Hospital course: Mr. Wagner is a 62 year old male past several history of advanced dementia coronary artery disease hypertension patient resides in a nursing home. He experienced a witnessed fall the patient was noted to be a little confused compared to his baseline patient was sent to the emergency room for evaluation EKG was completed which did reveal ST depression in anterior leads concerning for anterior ischemia compared to EKG 08/2017. Patient underwent an echo with LVEF 60% normal LV chamber size wall thickness and function mild left ventricular diastolic dysfunction normal right ventricular structure and function cardiology recommending medical management. During admission patient did experience urinary retention Flomax was initiated he is to follow-up with urology as an outpatient. Patient was also evaluated by PT OT recommending ECF placement. Patient is hemodynamically stable this time and is ready for discharge to ECF Discharge discussed with: patient - Time Spent with Patient Total time spent providing and/or coordinating discharge services: - Discharge Medications Home Medications: Aspirin [Adult Aspirin Regimen] 81 mg PO DAILY 11/08/17 [History] Benztropine [Cogentin] 1 mg PO BID 11/08/17 [History] Cholecalciferol (D-3) [Vitamin D] 5,000 unit PO DAILY 11/08/17 [History] Docusate Sodium [Dok] 100 mg PO DAILY 11/08/17 [History] Haloperidol 10 mg PO BID 11/08/17 [History] Haloperidol [Haldol] 5 mg PO HS 11/08/17 [History] HydrOXYzine 10 mg PO Q6H PRN 11/08/17 [History] Loratadine [Claritin] 10 mg PO DAILY 11/08/17 [History] Meloxicam 15 mg PO DAILY 11/08/17 [History] Metoprolol [Lopressor] 25 mg PO BID 11/08/17 [History] Multivitamin/Iron/Folic Acid [Certavite-Antioxidant Tablet] 1 tab PO DAILY 11/08 [History] Ranitidine HCl [Acid Slat Basket Maker] 150 mg PO BID 11/08/17 [History] Simvastatin [Zocor] 40 mg PO HS 11/08/17 [History] risperiDONE [Risperidone] 4 mg PO BID 11/08/17 [History] traZODone [TraZODone] 50 mg PO HS PRN 11/08/17 [History] Allergies/Adverse Reactions: 3 Allergy/AdvReac Type Severity Reaction Status Date / Time Penicillins Allergy Severe unknown Verified 11/08/17 16:23 perphenazine Allergy See Verified 11/08/17 16:23 Comments Phenothiazines Allergy See Verified 11/08/17 16:23 Comments Thioxanthenes Allergy See Verified 11/08/17 16:23 Comments venom-honey bee Allergy See Verified 11/08/17 16:23 [bee venom (honey bee)] Comments Novaine Allergy Intermediate unknown Uncoded 11/08/17 16:23 Trillivon Allergy Intermediate unknown Uncoded 11/08/17 16:23 Date of admission: 11/08/17 17:58 Primary care physician: Chivo Mcfarlane MD Consults: 11/08/17 18:47 Consult to Automation And Control Engineer [CONS] Routine Reason for SW Consult: from a nursing home. unaware of name and location. Phone number to contact is Radha at [phone]. I do not have a whole lot of information at this time due to orientation but patient is from a nursing home 11/09/17 13:15 Consult to Occupational Therapy [CONS] Routine Comment: Evaluate, develop and implement POC Reason for Consult: eval and treat Does patient have active BEDREST order?: No Is patient medically & hemodynamically stable?: Yes Patient assessed for mobility or mobilized this visit?: No Consult to Physical Therapy [CONS] Routine Comment: Evaluate, develop and implement POC Reason for Consult: eval and treat Does patient have active BEDREST order?: No Is patient medically & hemodynamically stable?: Yes Patient assessed for mobility or mobilized this visit?: No Discharging clinician: Ludmila Carter Anticipated date of discharge: 11/16/17 - Constitutional Vitals: Temp Pulse Resp BP Pulse Ox 97.5 F L 71 16 119/66 99 11/16/17 11:50 11/16/17 11:50 11/16/17 11:50 11/16/17 11:50 11/16/17 11:50 General appearance: Present: cooperative, A&O X 2, pleasant. Absent: answers questions appropriately - Head Head exam: Present: atraumatic, normocephalic - Eye Eye exam: Present: PERRL, conjuntiva pink, sclera anicteric Pupils: Present: PERRL - Neck Neck exam general surgery: Present: supple, trachea midline. Absent: lymphadenopathy - Respiratory Respiratory exam: Present: CTAB. Absent: accessory muscle use, rales, rhonchi, wheezes - Cardiovascular Cardiovascular exam: Present: RRR, +S1, +S2. Absent: diastolic murmur, gallop, rubs, systolic murmur - GI/Abdominal GI/Abdominal exam: Present: normal bowel sounds, soft, no peritoneal signs. Absent: distended, tenderness - Extremities Exam Extremities exam: Present: warm, radial pulses palpable and symmetrical. Absent : calf tenderness, cyanotic, pedal edema - Neurological Exam Neurological exam: Present: CN II-XII intact, oriented X3, no focal deficits. Absent: pronater drift, facial droop, speech deficit - Skin Skin exam: Present: dry, intact - Patient Status Disposition: Transfer SNF Condition: Fair Functional capacity at discharge: independent ambulation Overall status at discharge: patient is back to baseline - Discharge Instructions Follow Up With: Chivo Mcfarlane MD [Primary Care Provider] -
--- NOTE | 2017-11-16 14:35 | Physician Discharge Referral ---
ExtendedCare Referral Info Transfer To: [facility] Provider in Charge: Ludmila Carter Provider in Charge after Transfer: PCP Institutional Level of Care: Skilled - Diagnosis (1) Acute electrocardiogram changes Priority: Primary Status: Acute (2) Diabetes mellitus Priority: Secondary Status: Chronic (3) Tobacco abuse Priority: Secondary Status: Chronic (4) Urinary retention Priority: Secondary Status: Acute Prognosis: Fair Aware of Diagnosis: Patient - Transfer Medications Home Medications: Aspirin [Adult Aspirin Regimen] 81 mg PO DAILY 11/08/17 [History] Benztropine [Cogentin] 1 mg PO BID 11/08/17 [History] Cholecalciferol (D-3) [Vitamin D] 5,000 unit PO DAILY 11/08/17 [History] Docusate Sodium [Dok] 100 mg PO DAILY 11/08/17 [History] Haloperidol 10 mg PO BID 11/08/17 [History] Haloperidol [Haldol] 5 mg PO HS 11/08/17 [History] HydrOXYzine 10 mg PO Q6H PRN 11/08/17 [History] Loratadine [Claritin] 10 mg PO DAILY 11/08/17 [History] Meloxicam 15 mg PO DAILY 11/08/17 [History] Metoprolol [Lopressor] 25 mg PO BID 11/08/17 [History] Multivitamin/Iron/Folic Acid [Certavite-Antioxidant Tablet] 1 tab PO DAILY 11/08 [History] Ranitidine HCl [Acid Senior It Security Analyst] 150 mg PO BID 11/08/17 [History] Simvastatin [Zocor] 40 mg PO HS 11/08/17 [History] risperiDONE [Risperidone] 4 mg PO BID 11/08/17 [History] traZODone [TraZODone] 50 mg PO HS PRN 11/08/17 [History] Allergies/Adverse Reactions: 3 Allergy/AdvReac Type Severity Reaction Status Date / Time Penicillins Allergy Severe unknown Verified 11/08/17 16:23 perphenazine Allergy See Verified 11/08/17 16:23 Comments Phenothiazines Allergy See Verified 11/08/17 16:23 Comments Thioxanthenes Allergy See Verified 11/08/17 16:23 Comments venom-honey bee Allergy See Verified 11/08/17 16:23 [bee venom (honey bee)] Comments Novaine Allergy Intermediate unknown Uncoded 11/08/17 16:23 Trillivon Allergy Intermediate unknown Uncoded 11/08/17 16:23 - Respiratory Orders Smoking Cessation: Smoking cessation has been advised. For more information, call the [place] Tobacco Quit Line at 4-856-UWUI-NOW. - Ancillary Orders May use pressure relief devices daily prn - Advance Directives Code Status: Full Code - Mobility Orders Ambulate - Rehabiliation Orders Rehab Potential: Good Rehab Orders: Evaluation for Physical Therapy, Evaluation for Occupational Therapy - Treatments Skin tear care topically daily PRN per policy - Diet Orders Cardiac CERTIFICATION: I certify that the transfer of the above named patient to an Extended Care Facility is necessary for the continuing treatment of the diagnosis listed. The above information is true and accurate reflection of patient's current condition. Confidential - Redisclosure prohibited without a patient's written consent.
== END 2017-11-16 17:19 ==
LOC: EMEROO 14:00 → 3BNU 14:00
PROVIDERS: ADMIT Internal Medicine; ATTEND Registered Nurse

== ENCOUNTER 2019-05-07 11:21 | Observation (INO) ==
[2019-05-07] MEDS ORDERED: 0.9 % Sodium Chloride 1,000 ML IVC ONE (11:29)
[2019-05-07] MEDS ORDERED: 0.9 % Sodium Chloride 1,000 ML ONE (11:37)
[2019-05-07 11:39] LABS: Basophils % 0.1 %; Hematocrit 33.2 % (37.5-50.1); Hemoglobin 11.3 g/dL (12.9-16.9); Immature Granulocytes % 0.8 % (0-4); Lymphocytes # 0.4 K/mcL (0.6-4.6); Lymphocytes % 2.1 %; Mean Corpuscular Hemoglobin 35.3 pg (28.0-33.3); Mean Corpuscular Volume 103.8 fL (83.0-100.0); Mean Platelet Volume 9.3 fL (9.4-12.4); Monocytes # 1.5 K/mcL (0.0-1.3); Monocytes % 7.4 %; Neutrophils # 18.5 K/mcL (1.6-8.9); Platelet Count 155 K/mcL (140-400); Red Cell Distribution Width 13.8 % (11.5-14.5); Segmented Neutrophils % 89.6 %; White Blood Count 20.6 K/mcL (4.3-11.1)
[2019-05-07 11:46] LABS: Prothrombin Time 11.3 Seconds (9.4-12.1)
[2019-05-07 11:49] LABS: Activated Partial Thrombo Time 28.7 Seconds (26.0-36.0)
[2019-05-07 11:51] LABS: Bilirubin,Urine Negative (Negative); Blood,Urine Negative (Negative); Clarity,Urine Clear (Clear); Color,Urine Yellow (Yellow); Glucose,Urine (UA) Normal (Normal); Ketones,Urine Trace mg/dL (Negative); Leukocyte Esterase,Urine Small (Negative); Nitrite,Urine Negative (Negative); Protein,Urine Trace mg/dL (Neg-Trace); Specific Gravity,Urine 1.019 (1.010-1.025); Urobilinogen,Urine Normal (Normal)
[2019-05-07 12:02] LABS: Alanine Aminotransferase 12 Units/L (7-52); Albumin 3.8 g/dL (3.5-5.7); Albumin/Globulin Ratio 1.3 (1.1-2.2); Alkaline Phosphatase 72 Units/L (34-104); Aspartate Amino Transferase 17 Units/L (13-39); BUN/Creatinine Ratio 14 (6-26); Bilirubin,Direct 0.1 mg/dL (0.0-0.2); Bilirubin,Indirect 0.2 mg/dL (0.0-1.2); Bilirubin,Total 0.3 mg/dL (0.3-1.0); Blood Urea Nitrogen 17 mg/dL (8-23); Calcium 9.4 mg/dL (8.6-10.3); Carbon Dioxide 26 mEq/L (23-29); Chloride 96 mEq/L (98-107); Ethanol < 10 mg/dL (Less than 10); Globulin 2.9 g/dL (2.4-3.5); Glucose 135 mg/dL (70-105); Osmolality,Calculated 272 (280-300); Potassium 4.6 mEq/L (3.5-5.1); Sodium 129 mEq/L (136-145); Total Protein 6.7 g/dL (6.4-8.9); eGFR For African Americans > 60 (> 60); eGFR For Non-African Americans > 60 (> 60)
[2019-05-07 12:03] LABS: Amphetamine Screen,Urine Negative ng/mL (Cutoff=1000); Barbiturate Screen,Urine Negative ng/mL (Cutoff=200); Benzodiazepines Screen,Urine Negative ng/mL (Cutoff=200); Cannabinoid Screen,Urine Negative ng/mL (Cutoff = 50); Cocaine Screen,Urine Negative ng/mL (Cutoff= 300); Opiate Screen,Urine Negative ng/mL (Cutoff=300); Phencyclidine Screen,Urine Negative ng/mL (Cutoff=25)
[2019-05-07 12:03] LABS: Squamous Epithelial Cell,Urine Many per lpf (None-Few)
[2019-05-07 12:04] LABS: Bacteria,Urine Few per hpf (None-Few); RBC,Urine 0-3 per hpf (0-3); Transitional Epi Cells,Urine Few per hpf (None-Few)
[2019-05-07 12:26] LABS: Troponin I < 0.03 ng/mL (< 0.04)
[2019-05-07] MEDS ORDERED: Cefepime HCl 2,000 MG in 0.9 % Sodium Chloride Mini Bag 100 ML IVPB ONE (12:26)
[2019-05-07 12:39] LABS: Thyroid Stimulating Hormone 11.173 mcIU/mL (0.340-5.600)
[2019-05-07] MEDS ORDERED: Isovue-370 500 ML BOTTLE IVP ONE (12:43)
[2019-05-07] MEDS ORDERED: Naloxone 0.4 MG/ML INJ IVP PRN (16:29)
[2019-05-07] MEDS ORDERED: Mag Hydrox/Al Hydrox/Simeth 30 ML UDC PO PRN (16:29)
[2019-05-07] MEDS ORDERED: Acetaminophen 325 MG TABLET PO PRN (16:35)
[2019-05-07] MEDS ORDERED: D5% in Water 1,000 ML IVC PRN (16:55)
[2019-05-07] MEDS ORDERED: *HR* Dextrose 50 % in Water (Syg) 50 ML SYRINGE IVP PRN (16:55)
[2019-05-07] MEDS ORDERED: Dextrose Gel 15 GM/37.5 ML TUBE PO PRN ×2 (16:55)
[2019-05-07] MEDS: *HR* Heparin 5,000 UNIT/ML VIAL SQ SCH (17:21)
[2019-05-07] MEDS: levETIRAcetam 250 MG TABLET PO SCH (17:23)
[2019-05-07] MEDS: 0.9 % Sodium Chloride 1,000 ML IVC SCH (17:24)
[2019-05-07] MEDS: Divalproex (12 HR) 250 MG TABLET PO SCH (22:11)
[2019-05-07] MEDS: risperiDONE 1 MG TABLET PO SCH (22:12)
[2019-05-07] MEDS: Insulin LISPRO 300 UNITS/3 ML VIAL SQ SCH (22:14)
[2019-05-08] MEDS: 0.9 % Sodium Chloride 1,000 ML IVC SCH (00:55)
[2019-05-08 01:44] LABS: Hematocrit 31.3 % (37.5-50.1); Hemoglobin 10.6 g/dL (12.9-16.9); Mean Corpuscular HGB Conc 33.9 g/dL (31.6-35.5); Mean Corpuscular Hemoglobin 35.5 pg (28.0-33.3); Mean Corpuscular Volume 104.7 fL (83.0-100.0); Mean Platelet Volume 9.8 fL (9.4-12.4); Platelet Count 131 K/mcL (140-400); Red Blood Count 2.99 M/mcL (4.19-5.50); Red Cell Distribution Width 13.9 % (11.5-14.5); White Blood Count 15.3 K/mcL (4.3-11.1)
[2019-05-08 02:04] LABS: BUN/Creatinine Ratio 21 (6-26); Blood Urea Nitrogen 16 mg/dL (8-23); Calcium 8.6 mg/dL (8.6-10.3); Carbon Dioxide 21 mEq/L (23-29); Chloride 101 mEq/L (98-107); Glucose 121 mg/dL (70-105); Osmolality,Calculated 274 (280-300); Potassium 4.2 mEq/L (3.5-5.1); Sodium 131 mEq/L (136-145); eGFR For African Americans > 60 (> 60); eGFR For Non-African Americans > 60 (> 60)
[2019-05-08] MEDS: *HR* Heparin 5,000 UNIT/ML VIAL SQ SCH ×2 (06:39→18:14)
[2019-05-08] MEDS: levETIRAcetam 250 MG TABLET PO SCH ×2 (06:40→18:14)
[2019-05-08] MEDS ORDERED: Cefepime HCl 2,000 MG in Water for inj. (sterile) 20 ML IVP SCH (09:00)
[2019-05-08] MEDS: Insulin LISPRO 300 UNITS/3 ML VIAL SQ SCH ×4 (10:04→20:50)
[2019-05-08] MEDS: risperiDONE 1 MG TABLET PO SCH ×2 (10:16→21:20)
[2019-05-08] MEDS: Multivit/Ca/Min/Fe/FA 1 TAB TABLET PO SCH (10:16)
[2019-05-08] MEDS: Cholecalciferol (D-3) 1,000 UNIT (25MCG) TABLET PO SCH (10:16)
[2019-05-08] MEDS: Divalproex (12 HR) 250 MG TABLET PO SCH ×3 (10:16→21:20)
[2019-05-08] MEDS: Aspirin Enteric Coated 81 MG Tablet PO SCH (10:16)
[2019-05-09 04:01] LABS: Hematocrit 29.7 % (37.5-50.1); Hemoglobin 10.1 g/dL (12.9-16.9); Mean Corpuscular Hemoglobin 35.1 pg (28.0-33.3); Mean Corpuscular Volume 103.1 fL (83.0-100.0); Platelet Count 128 K/mcL (140-400); Red Blood Count 2.88 M/mcL (4.19-5.50); White Blood Count 17.2 K/mcL (4.3-11.1)
[2019-05-09 04:17] LABS: BUN/Creatinine Ratio 16 (6-26); Blood Urea Nitrogen 12 mg/dL (8-23); Calcium 8.9 mg/dL (8.6-10.3); Carbon Dioxide 24 mEq/L (23-29); Chloride 98 mEq/L (98-107); Glucose 115 mg/dL (70-105); Osmolality,Calculated 273 (280-300); Potassium 3.5 mEq/L (3.5-5.1); Sodium 131 mEq/L (136-145); eGFR For African Americans > 60 (> 60); eGFR For Non-African Americans > 60 (> 60)
[2019-05-09] MEDS: *HR* Heparin 5,000 UNIT/ML VIAL SQ SCH (05:16)
[2019-05-09] MEDS: risperiDONE 1 MG TABLET PO SCH (09:36)
[2019-05-09] MEDS: Multivit/Ca/Min/Fe/FA 1 TAB TABLET PO SCH (09:36)
[2019-05-09] MEDS: Aspirin Enteric Coated 81 MG Tablet PO SCH (09:37)
[2019-05-09] MEDS: Cholecalciferol (D-3) 1,000 UNIT (25MCG) TABLET PO SCH (09:37)
[2019-05-09] MEDS: levETIRAcetam 250 MG TABLET PO SCH (09:37)
[2019-05-09] MEDS: Divalproex (12 HR) 250 MG TABLET PO SCH (09:37)
[2019-05-09 09:43] VITALS: BP 130/76
[2019-05-09] MEDS: Insulin LISPRO 300 UNITS/3 ML VIAL SQ SCH ×2 (10:21→11:01)
[2019-05-09] MEDS ORDERED: *HR* LORazepam 2 MG/ML VIAL IM STA (13:49)
== END 2019-05-09 13:57 ==
LOC: 3BNU 11:21 → EMEROOARM 11:21 → SUATTDRO 14:53 → 3BNU 15:56
PROVIDERS: ADMIT Internal Medicine; ATTEND Family Medicine

== ENCOUNTER 2019-08-13 00:36 | Observation (INO) ==
[2019-08-13] MEDS ORDERED: Naloxone 0.4 MG/ML INJ IVP PRN ×2 (04:43→06:14)
[2019-08-13] MEDS ORDERED: Ondansetron 4 MG/2 ML VIAL IVP PRN (05:58)
[2019-08-13 07:36] LABS: % Iron Saturation 17 % (20-55); Iron 51 mcg/dL (65-175); Transferrin 215 mg/dL (203-362)
[2019-08-13 07:37] LABS: BUN/Creatinine Ratio 19 (6-26); Blood Urea Nitrogen 13 mg/dL (8-23); Calcium 8.6 mg/dL (8.6-10.3); Carbon Dioxide 25 mEq/L (23-29); Chloride 102 mEq/L (98-107); Glucose 95 mg/dL (70-105); Osmolality,Calculated 278 (280-300); Potassium 4.2 mEq/L (3.5-5.1); Sodium 134 mEq/L (136-145); eGFR For African Americans > 60 (> 60); eGFR For Non-African Americans > 60 (> 60)
[2019-08-13] MEDS: Insulin LISPRO 300 UNITS/3 ML VIAL SQ SCH ×3 (07:43→16:53)
[2019-08-13] MEDS: cefTRIAXone 1,000 MG in Water for inj. (sterile) 10 ML IVP SCH (07:57)
[2019-08-13] MEDS: *HR* Enoxaparin 40 MG/0.4 ML SYRINGE SQ SCH (07:57)
[2019-08-13] MEDS: Azithromycin 500 MG in 0.9 % Sodium Chloride 250 ML IVPB SCH (07:58)
[2019-08-13] MEDS: 0.9 % Sodium Chloride 1,000 ML IVC SCH (08:01)
[2019-08-13 08:02] LABS: Folate 18.9 ng/mL (3.0-16.0)
[2019-08-13 08:25] LABS: Basophils % 0.1 %; Hemoglobin 9.6 g/dL (12.9-16.9); Mean Platelet Volume 10.8 fL (9.4-12.4)
[2019-08-13 08:26] LABS: Eosinophils # 0.1 K/mcL (0.0-0.6); Eosinophils % 0.9 %; Hematocrit 27.7 % (37.5-50.1); Immature Granulocytes % 0.2 % (0-4); Immature Platelets 4.4 % (1.1-6.1); Lymphocytes # 0.8 K/mcL (0.6-4.6); Mean Corpuscular HGB Conc 34.7 g/dL (31.6-35.5); Mean Corpuscular Hemoglobin 34.8 pg (28.0-33.3); Mean Corpuscular Volume 100.4 fL (83.0-100.0); Monocytes # 0.8 K/mcL (0.0-1.3); Monocytes % 7.8 %; Red Blood Count 2.76 M/mcL (4.19-5.50); Red Cell Distribution Width 15.4 % (11.5-14.5); White Blood Count 9.6 K/mcL (4.3-11.1)
[2019-08-13 08:27] LABS: Platelet Count 91 K/mcL (140-400)
[2019-08-13 08:45] LABS: BUN/Creatinine Ratio 18 (6-26); Blood Urea Nitrogen 12 mg/dL (8-23); Calcium 8.7 mg/dL (8.6-10.3); Carbon Dioxide 25 mEq/L (23-29); Chloride 102 mEq/L (98-107); Glucose 94 mg/dL (70-105); Magnesium 1.8 mg/dL (1.6-2.6); Osmolality,Calculated 278 (280-300); Potassium 4.3 mEq/L (3.5-5.1); Sodium 134 mEq/L (136-145); eGFR For African Americans > 60 (> 60); eGFR For Non-African Americans > 60 (> 60)
[2019-08-13] MEDS ORDERED: *HR* Dextrose 50 % in Water (Syg) 50 ML SYRINGE IVP PRN (12:16)
[2019-08-13] MEDS ORDERED: D5% in Water 1,000 ML IVC PRN (12:16)
[2019-08-13] MEDS ORDERED: Dextrose Gel 15 GM/37.5 ML TUBE PO PRN ×2 (12:16)
[2019-08-13] MEDS ORDERED: *HR* LORazepam 2 MG/ML VIAL IVP PRN (13:19)
[2019-08-13] MEDS: levETIRAcetam 1,000 MG in 0.9 % Sodium Chloride 100 ML IVPB SCH (20:18)
[2019-08-13] MEDS: Sennosides/Docusate Sodium TABLET PO SCH (20:23)
[2019-08-14] MEDS: Insulin LISPRO 300 UNITS/3 ML VIAL SQ SCH ×4 (00:34→23:13)
[2019-08-14] MEDS: 0.9 % Sodium Chloride 1,000 ML IVC SCH (03:10)
[2019-08-14 04:23] LABS: Magnesium 1.8 mg/dL (1.6-2.6)
[2019-08-14] MEDS: Azithromycin 500 MG in 0.9 % Sodium Chloride 250 ML IVPB SCH (06:53)
[2019-08-14] MEDS: cefTRIAXone 1,000 MG in Water for inj. (sterile) 10 ML IVP SCH (12:05)
[2019-08-14] MEDS: Sennosides/Docusate Sodium TABLET PO SCH (12:05)
[2019-08-14] MEDS: *HR* Enoxaparin 40 MG/0.4 ML SYRINGE SQ SCH (12:06)
[2019-08-14] MEDS: levETIRAcetam 1,000 MG in 0.9 % Sodium Chloride 100 ML IVPB SCH ×2 (12:22→23:18)
[2019-08-14] MEDS ORDERED: D5% in Water 1,000 ML IVC PRN ×2 (12:30→15:26)
[2019-08-14] MEDS ORDERED: *HR* Dextrose 50 % in Water (Syg) 50 ML SYRINGE IVP PRN ×2 (12:30→15:26)
[2019-08-14] MEDS ORDERED: Dextrose Gel 15 GM/37.5 ML TUBE PO PRN ×4 (12:30→15:26)
[2019-08-14] MEDS ORDERED: Valproic Acid Oral Soln 250 MG/5 ML UDC PO SCH (21:00)
[2019-08-14] MEDS: risperiDONE 1 MG TABLET PO SCH (23:12)
[2019-08-15 02:05] LABS: Basophils % 0.2 %; Hemoglobin 9.3 g/dL (12.9-16.9); Mean Corpuscular Volume 104.1 fL (83.0-100.0)
[2019-08-15 02:07] LABS: Eosinophils # 0.1 K/mcL (0.0-0.6); Eosinophils % 1.3 %; Hematocrit 27.7 % (37.5-50.1); Immature Granulocytes % 0.5 % (0-4); Immature Platelets 4.2 % (1.1-6.1); Lymphocytes # 1.7 K/mcL (0.6-4.6); Mean Corpuscular HGB Conc 33.6 g/dL (31.6-35.5); Mean Platelet Volume 10.7 fL (9.4-12.4); Monocytes # 0.8 K/mcL (0.0-1.3); Monocytes % 8.6 %; Neutrophils # 6.1 K/mcL (1.6-8.9); Platelet Count 107 K/mcL (140-400); Red Blood Count 2.66 M/mcL (4.19-5.50); Red Cell Distribution Width 15.7 % (11.5-14.5); Segmented Neutrophils % 70.4 %; White Blood Count 8.7 K/mcL (4.3-11.1)
[2019-08-15 02:26] LABS: BUN/Creatinine Ratio 13 (6-26); Blood Urea Nitrogen 9 mg/dL (8-23); Calcium 9.2 mg/dL (8.6-10.3); Carbon Dioxide 24 mEq/L (23-29); Chloride 104 mEq/L (98-107); Glucose 131 mg/dL (70-105); Magnesium 1.7 mg/dL (1.6-2.6); Osmolality,Calculated 280 (280-300); Potassium 3.7 mEq/L (3.5-5.1); Sodium 135 mEq/L (136-145); eGFR For African Americans > 60 (> 60); eGFR For Non-African Americans > 60 (> 60)
[2019-08-15 07:17] VITALS: BP 131/68
[2019-08-15] MEDS ORDERED: Insulin DETEMIR 100 UNIT/ML X5UNITS SQ SCH (09:00)
[2019-08-15] MEDS ORDERED: Sennosides/Docusate Sodium TABLET PO SCH (09:00)
[2019-08-15] MEDS ORDERED: Aspirin Enteric Coated 81 MG Tablet PO SCH (09:00)
[2019-08-15] MEDS ORDERED: Cholecalciferol (D-3) 1,000 UNIT (25MCG) TABLET PO SCH (09:00)
[2019-08-15] MEDS ORDERED: Valproic Acid Oral Soln 250 MG/5 ML UDC PO SCH (09:00)
[2019-08-15] MEDS ORDERED: Multivit/Ca/Min/Fe/FA 1 TAB TABLET PO SCH (09:00)
[2019-08-15] MEDS: risperiDONE 1 MG TABLET PO SCH (10:16)
[2019-08-15] MEDS: *HR* Enoxaparin 40 MG/0.4 ML SYRINGE SQ SCH (10:18)
[2019-08-15] MEDS: Insulin LISPRO 300 UNITS/3 ML VIAL SQ SCH (10:18)
[2019-08-15] MEDS: levETIRAcetam 1,000 MG in 0.9 % Sodium Chloride 100 ML IVPB SCH (10:23)
== END 2019-08-15 14:42 ==
LOC: 2NENU → SUATTDRO 03:14
PROVIDERS: ADMIT Student in an Organized Health Care Education/Training Program; ATTEND Pharmacist

== ENCOUNTER 2019-09-02 19:12 | Inpatient (IN) ==
[2019-09-02] MEDS ORDERED: 0.9 % Sodium Chloride 1,000 ML IVC ONE (19:25)
[2019-09-02 19:35] LABS: Basophils % 0.3 %; Hemoglobin 9.4 g/dL (12.9-16.9); Mean Corpuscular Volume 98.9 fL (83.0-100.0); Red Cell Distribution Width 15.9 % (11.5-14.5)
[2019-09-02 19:37] LABS: Eosinophils # 0.1 K/mcL (0.0-0.6); Eosinophils % 0.8 %; Immature Granulocytes % 0.4 % (0-4); Immature Platelets 8.1 % (1.1-6.1); Lymphocytes # 0.8 K/mcL (0.6-4.6); Lymphocytes % 9.6 %; Mean Corpuscular HGB Conc 34.8 g/dL (31.6-35.5); Mean Corpuscular Hemoglobin 34.4 pg (28.0-33.3); Mean Platelet Volume 11.2 fL (9.4-12.4); Monocytes % 6.9 %; Neutrophils # 6.5 K/mcL (1.6-8.9); Red Blood Count 2.73 M/mcL (4.19-5.50); White Blood Count 7.9 K/mcL (4.3-11.1)
[2019-09-02 19:39] LABS: Monocytes # 0.6 K/mcL (0.0-1.3); Platelet Count 92 K/mcL (140-400)
[2019-09-02 19:43] LABS: Prothrombin Time 11.6 Seconds (9.4-12.1)
[2019-09-02 19:46] LABS: Activated Partial Thrombo Time 44.7 Seconds (26.0-36.0)
[2019-09-02 20:03] LABS: Alanine Aminotransferase 31 Units/L (7-52); Albumin 3.5 g/dL (3.5-5.7); Albumin/Globulin Ratio 1.3 (1.1-2.2); Alkaline Phosphatase 97 Units/L (34-104); Aspartate Amino Transferase 26 Units/L (13-39); BUN/Creatinine Ratio 13 (6-26); Bilirubin,Direct 0.1 mg/dL (0.0-0.2); Bilirubin,Indirect 0.1 mg/dL (0.0-1.0); Bilirubin,Total 0.2 mg/dL (0.3-1.0); Blood Urea Nitrogen 11 mg/dL (8-23); Calcium 9.6 mg/dL (8.6-10.3); Carbon Dioxide 26 mEq/L (23-29); Chloride 100 mEq/L (98-107); Globulin 2.8 g/dL (2.4-3.5); Glucose 136 mg/dL (70-105); Lipase 284 Units/L (11-82); Osmolality,Calculated 283 (280-300); Potassium 4.2 mEq/L (3.5-5.1); Sodium 136 mEq/L (136-145); Total Protein 6.3 g/dL (6.4-8.9); Troponin I < 0.03 ng/mL (< 0.04); eGFR For African Americans > 60 (> 60); eGFR For Non-African Americans > 60 (> 60)
[2019-09-02 20:16] LABS: Thyroid Stimulating Hormone 10.781 mcIU/mL (0.340-5.600)
[2019-09-02 20:17] LABS: Triiodothyronine (T3) Free 3.11 pg/mL (2.50-3.90)
[2019-09-02] MEDS ORDERED: cefTRIAXone 1,000 MG in Water for inj. (sterile) 10 ML IVP ONE (20:40)
[2019-09-02] MEDS ORDERED: Azithromycin 500 MG in 0.9 % Sodium Chloride 250 ML IVPB ONE (20:40)
[2019-09-02 21:24] LABS: Bilirubin,Urine Negative (Negative); Blood,Urine Negative (Negative); Clarity,Urine Cloudy (Clear); Color,Urine Yellow (Yellow); Glucose,Urine (UA) Normal (Normal); Ketones,Urine Negative (Negative); Leukocyte Esterase,Urine Negative (Negative); Nitrite,Urine Negative (Negative); PH,Urine 7.5 pH Units (5.0-8.0); Protein,Urine Negative (Neg-Trace); Specific Gravity,Urine 1.015 (1.010-1.025); Urobilinogen,Urine Normal (Normal)
[2019-09-02 21:25] LABS: Bacteria,Urine None Seen per hpf (None-Few); Hyaline Casts,Urine None Seen per lpf (None-Few); RBC,Urine 0-3 per hpf (0-3); Squamous Epithelial Cell,Urine Many per lpf (None-Few); WBC,Urine 0-3 per hpf (0-3)
[2019-09-02] MEDS ORDERED: Naloxone 0.4 MG/ML INJ IVP PRN (22:34)
[2019-09-02] MEDS ORDERED: Ipratropium/Albuterol Neb 3 ML IH PRN (22:39)
[2019-09-02] MEDS ORDERED: *HR* Dextrose 50 % in Water (Syg) 50 ML SYRINGE IVP PRN (22:39)
[2019-09-02] MEDS ORDERED: D5% in Water 1,000 ML IVC PRN (22:39)
[2019-09-02] MEDS ORDERED: Dextrose Gel 15 GM/37.5 ML TUBE PO PRN ×2 (22:39)
[2019-09-02] MEDS ORDERED: 0.9 % Sodium Chloride 1,000 ML IVC SCH (22:45)
[2019-09-03] MEDS: Ipratropium/Albuterol Neb 3 ML IH SCH ×6 (00:35→20:12)
[2019-09-03 00:44] LABS: Basophils % 0.2 %; Red Cell Distribution Width 15.9 % (11.5-14.5)
[2019-09-03 00:46] LABS: Eosinophils # 0.1 K/mcL (0.0-0.6); Eosinophils % 0.7 %; Hematocrit 23.3 % (37.5-50.1); Hemoglobin 8.3 g/dL (12.9-16.9); Immature Granulocytes % 0.7 % (0-4); Lymphocytes # 0.6 K/mcL (0.6-4.6); Lymphocytes % 7.7 %; Mean Corpuscular HGB Conc 35.6 g/dL (31.6-35.5); Mean Corpuscular Hemoglobin 34.7 pg (28.0-33.3); Mean Corpuscular Volume 97.5 fL (83.0-100.0); Mean Platelet Volume 11.2 fL (9.4-12.4); Monocytes # 0.5 K/mcL (0.0-1.3); Monocytes % 6.2 %; Red Blood Count 2.39 M/mcL (4.19-5.50); Segmented Neutrophils % 84.5 %; White Blood Count 8.3 K/mcL (4.3-11.1)
[2019-09-03 00:47] LABS: Platelet Count 85 K/mcL (140-400)
[2019-09-03 01:04] LABS: Alanine Aminotransferase 29 Units/L (7-52); Albumin 3.1 g/dL (3.5-5.7); Albumin/Globulin Ratio 1.1 (1.1-2.2); Alkaline Phosphatase 90 Units/L (34-104); Aspartate Amino Transferase 27 Units/L (13-39); BUN/Creatinine Ratio 13 (6-26); Bilirubin,Total 0.2 mg/dL (0.3-1.0); Blood Urea Nitrogen 11 mg/dL (8-23); Calcium 8.9 mg/dL (8.6-10.3); Carbon Dioxide 24 mEq/L (23-29); Chloride 105 mEq/L (98-107); Chol/HDL Ratio 3.4 (0-4.9); Cholesterol 138 mg/dL (< 200); Globulin 2.7 g/dL (2.4-3.5); Glucose 110 mg/dL (70-105); HDL Cholesterol 41 mg/dL (40-59); LDL Cholesterol,Calculated 84 mg/dL (0-99); Osmolality,Calculated 282 (280-300); Potassium 4.9 mEq/L (3.5-5.1); Sodium 136 mEq/L (136-145); Total Protein 5.8 g/dL (6.4-8.9); Triglycerides 67 mg/dL (< 150); eGFR For African Americans > 60 (> 60); eGFR For Non-African Americans > 60 (> 60)
[2019-09-03] MEDS ORDERED: 0.9 % Sodium Chloride 1,000 ML IVC SCH ×2 (01:09→06:45)
[2019-09-03] MEDS: Insulin LISPRO 300 UNITS/3 ML VIAL SQ SCH ×3 (08:04→19:03)
[2019-09-03] MEDS: risperiDONE 1 MG TABLET PO SCH ×2 (08:39→20:28)
[2019-09-03] MEDS: Valproic Acid Oral Soln 250 MG/5 ML UDC PO SCH ×2 (09:35→20:28)
[2019-09-03] MEDS: levETIRAcetam 500 MG/5 ML UDC PO SCH ×2 (09:36→20:28)
[2019-09-03] MEDS: Aspirin Enteric Coated 81 MG Tablet PO SCH (09:38)
[2019-09-03] MEDS: Sennosides/Docusate Sodium TABLET PO SCH ×2 (09:38→20:27)
[2019-09-03] MEDS: cefTRIAXone 2,000 MG in Water for inj. (sterile) 20 ML IVP SCH (15:04)
[2019-09-03] MEDS: Ringers Solution, Lactated 1,000 ML IVC SCH (15:04)
[2019-09-03 16:15] LABS: Adenovirus Not Detected (Not Detect)
[2019-09-03 16:16] LABS: Bordetella Pertussis Not Detected (Not Detect); Chlamydophila pneumoniae Not Detected (Not Detect); Coronavirus 229E Not Detected (Not Detect); Coronavirus HKU1 Not Detected (Not Detect); Coronavirus NL63 Not Detected (Not Detect); Coronavirus OC43 Not Detected (Not Detect); Human Metapneumovirus Not Detected (Not Detect); Human Rhinovirus/Enterovirus Not Detected (Not Detect); Influenza A Subtype 2009 H1 Not Detected (Not Detect); Influenza B Not Detected (Not Detect); Mycoplasma pneumoniae Not Detected (Not Detect); Parainfluenza Virus 1 Not Detected (Not Detect); Parainfluenza Virus 2 Not Detected (Not Detect); Parainfluenza Virus 3 Not Detected (Not Detect); Parainfluenza Virus 4 Not Detected (Not Detect); Respiratory Syncytial Virus Not Detected (Not Detect)
[2019-09-04] MEDS: Ipratropium/Albuterol Neb 3 ML IH SCH ×7 (00:24→23:33)
[2019-09-04] MEDS: Ringers Solution, Lactated 1,000 ML IVC SCH (02:16)
[2019-09-04 05:36] LABS: Hematocrit 23.1 % (37.5-50.1); Immature Platelets 9.1 % (1.1-6.1); Mean Corpuscular HGB Conc 34.6 g/dL (31.6-35.5); Mean Corpuscular Hemoglobin 34.2 pg (28.0-33.3); Mean Corpuscular Volume 98.7 fL (83.0-100.0); Mean Platelet Volume 12.3 fL (9.4-12.4); Red Blood Count 2.34 M/mcL (4.19-5.50); Red Cell Distribution Width 16.2 % (11.5-14.5); White Blood Count 6.3 K/mcL (4.3-11.1)
[2019-09-04 05:39] LABS: BUN/Creatinine Ratio 11 (6-26); Blood Urea Nitrogen 9 mg/dL (8-23); Calcium 9.2 mg/dL (8.6-10.3); Carbon Dioxide 23 mEq/L (23-29); Chloride 106 mEq/L (98-107); Glucose 92 mg/dL (70-105); Osmolality,Calculated 286 (280-300); Potassium 4.5 mEq/L (3.5-5.1); Sodium 139 mEq/L (136-145); eGFR For African Americans > 60 (> 60); eGFR For Non-African Americans > 60 (> 60)
[2019-09-04] MEDS: Insulin LISPRO 300 UNITS/3 ML VIAL SQ SCH ×3 (07:48→16:26)
[2019-09-04] MEDS: cefTRIAXone 2,000 MG in Water for inj. (sterile) 20 ML IVP SCH (08:27)
[2019-09-04] MEDS: Azithromycin 250 MG TABLET PO SCH (08:31)
[2019-09-04] MEDS: risperiDONE 1 MG TABLET PO SCH ×2 (08:31→21:24)
[2019-09-04] MEDS: Aspirin Enteric Coated 81 MG Tablet PO SCH (08:31)
[2019-09-04] MEDS: levETIRAcetam 500 MG/5 ML UDC PO SCH ×2 (08:31→21:25)
[2019-09-04] MEDS: Valproic Acid Oral Soln 250 MG/5 ML UDC PO SCH ×2 (08:31→21:25)
[2019-09-04] MEDS: Sennosides/Docusate Sodium TABLET PO SCH ×2 (08:32→21:24)
[2019-09-05] MEDS: Ipratropium/Albuterol Neb 3 ML IH SCH ×3 (03:44→11:42)
[2019-09-05 06:33] LABS: Hemoglobin 8.8 g/dL (12.9-16.9)
[2019-09-05 06:35] LABS: Hematocrit 25.9 % (37.5-50.1); Immature Platelets 7.5 % (1.1-6.1); Mean Corpuscular Hemoglobin 34.6 pg (28.0-33.3); Mean Platelet Volume 12.2 fL (9.4-12.4); Red Blood Count 2.54 M/mcL (4.19-5.50); Red Cell Distribution Width 15.8 % (11.5-14.5); White Blood Count 6.3 K/mcL (4.3-11.1)
[2019-09-05 06:50] LABS: BUN/Creatinine Ratio 14 (6-26); Blood Urea Nitrogen 9 mg/dL (8-23); Calcium 9.5 mg/dL (8.6-10.3); Carbon Dioxide 24 mEq/L (23-29); Chloride 103 mEq/L (98-107); Glucose 106 mg/dL (70-105); Osmolality,Calculated 285 (280-300); Potassium 3.9 mEq/L (3.5-5.1); Sodium 138 mEq/L (136-145); eGFR For African Americans > 60 (> 60); eGFR For Non-African Americans > 60 (> 60)
[2019-09-05] MEDS: Insulin LISPRO 300 UNITS/3 ML VIAL SQ SCH (08:32)
[2019-09-05 09:28] VITALS: BP 123/84
[2019-09-05] MEDS: cefTRIAXone 2,000 MG in Water for inj. (sterile) 20 ML IVP SCH (09:38)
[2019-09-05] MEDS: Valproic Acid Oral Soln 250 MG/5 ML UDC PO SCH (09:45)
[2019-09-05] MEDS: levETIRAcetam 500 MG/5 ML UDC PO SCH (09:45)
[2019-09-05] MEDS: risperiDONE 1 MG TABLET PO SCH (09:46)
[2019-09-05] MEDS: Azithromycin 250 MG TABLET PO SCH (09:46)
[2019-09-05] MEDS: Aspirin Enteric Coated 81 MG Tablet PO SCH (09:47)
[2019-09-05] MEDS: Sennosides/Docusate Sodium TABLET PO SCH (09:50)
== END 2019-09-05 13:31 | DRG 720 ==
LOC: 3BNU 19:12 → EMEROOARM 19:12 → SUATTDRO 21:47 → 2ANU 22:31
PROVIDERS: ADMIT Internal Medicine; ATTEND Internal Medicine